=== PATIENT | female | born 1970 | race Caucasian/White ===

== ENCOUNTER → 2017-11-01 07:54 | Outpatient (CLI) | payer OTHER, SELFPAY ==
[2017-11-01 08:04] VITALS: BP 113/65; PULSE 85; RESP 18; TEMP 36.3; O2SAT 99; BMI 21.7
== END ==
PROVIDERS: Family Provider Family Medicine Geriatric Medicine; PCP Family Medicine Geriatric Medicine; Visit Provider Family Medicine Geriatric Medicine
DX: D50.9 Iron deficiency anemia, unspecified (principal)
CPT/HCPCS: 96365; J1756; J7050; A4216

== ENCOUNTER → 2017-11-03 07:55 | Outpatient (CLI) | payer OTHER, SELFPAY ==
[2017-11-03 08:04] VITALS: BP 110/72; PULSE 59; RESP 16; TEMP 36.8; O2SAT 100
== END ==
PROVIDERS: Family Provider Family Medicine Geriatric Medicine; PCP Family Medicine Geriatric Medicine; Visit Provider Family Medicine Geriatric Medicine
DX: D50.9 Iron deficiency anemia, unspecified (principal)
CPT/HCPCS: 96365; J1756; J7050; A4216

== ENCOUNTER → 2017-11-05 08:01 | Outpatient (CLI) | payer OTHER, SELFPAY ==
[2017-11-05 08:05] VITALS: BP 111/74; PULSE 73; RESP 16; TEMP 36.3; O2SAT 99
== END ==
PROVIDERS: Family Provider Family Medicine Geriatric Medicine; PCP Family Medicine Geriatric Medicine; Visit Provider Family Medicine Geriatric Medicine
DX: D50.9 Iron deficiency anemia, unspecified (principal)
CPT/HCPCS: 96365; J1756; J7050; A4216

== ENCOUNTER → 2017-11-08 08:00 | Outpatient (CLI) | payer OTHER, SELFPAY ==
[2017-11-08 08:20] VITALS: BP 112/67; PULSE 87; RESP 16; TEMP 36.9; O2SAT 97
== END ==
PROVIDERS: Family Provider Family Medicine Geriatric Medicine; PCP Family Medicine Geriatric Medicine; Visit Provider Family Medicine Geriatric Medicine
DX: D50.9 Iron deficiency anemia, unspecified (principal)
CPT/HCPCS: 96365; J1756; J7050; A4216

== ENCOUNTER → 2017-11-10 07:43 | Outpatient (CLI) | payer OTHER, SELFPAY ==
[2017-11-10 08:09] VITALS: BP 116/59; PULSE 79; RESP 16; TEMP 37; O2SAT 99
== END ==
PROVIDERS: Family Provider Family Medicine Geriatric Medicine; PCP Family Medicine Geriatric Medicine; Visit Provider Family Medicine Geriatric Medicine
DX: D50.9 Iron deficiency anemia, unspecified (principal)
CPT/HCPCS: 96365; J1756; J7050; A4216

== ENCOUNTER → 2017-11-17 07:39 | Outpatient (CLI) | payer OTHER, SELFPAY ==
[2017-11-17 08:30] LABS: Absolute Lymphocyte Count 1.34 X10^3/ul (0.83-4.51); Absolute Neutrophil Count 4.3 X10^3/uL (2.0-7.7); Basophil# 0.03 X10^3/uL; Basophil% 0.5 % (0-1); Eosinophils% 3.1 % (0-5); Hematocrit 40.6 % (37-47); Hemoglobin 12.3 g/dl (12.0-15.0); Lymphocyte # 1.34 X10^3/ul (4.0); Lymphocyte % 20.7 % (19-41); Mean Corp Hgb Conc 30.3 g/gl (32-36); Mean Corpuscular Hgb 26.5 pg (27.0-32.0); Mean Corpuscular Volume 87.5 fL (81-99); Mean Platelet Vol. 10.3 fl (6.2-12.0); Monocyte# 0.63 X10^3/uL; Monocyte% 9.7 % (0-10); Neutrophil # 4.25 X10^3/uL (2.7-7.7); Neutrophil % 65.7 % (47-70); POSITIVE COUNT NO; POSITIVE DIFFERENTIAL NO; POSITIVE MORPHOLOGY NO; Platelet Count 310 K/mm3 (150-450); RBC Distribution Width CV 18.7 % (11.6-14.6); RBC Distribution Width SD 59.3 fl (35.1-43.9); Red Blood Count 4.64 M/mm3 (4.2-5.4); White Blood Count 6.5 K/mm3 (4.4-11.0)
[2017-11-17 09:01] LABS: AST(SGOT) 29 U/L (15-37); Alanine Aminotransfer ALT/SGPT 30 U/L (13-56); Albumin, Serum 3.4 g/dL (3.2-5.0); Alkaline Phosphatase 67 U/L (45-117); Anion Gap 8 (5-15); BUN 16 mg/dL (7-18); BUN/Creat Ratio 18.9 RATIO (10-20); Calcium,Total 8.6 mg/dL (8.5-10.1); Chloride 108 mmol/L (98-107); Creatinine, Serum 0.85 mg/dL (0.55-1.02); EST Glomerular Filtration Rate 77 mL/min (>60); Est Glom Filt Rate - Afr Amer 93 mL/min (>60); Globulin 3.5 g/dL (2.2-4.2); Glucose 82 mg/dL (74-106); Iron 114 ug/dL (50-170); Iron Binding Capacity,Total 331 ug/dL (250-450); Potassium 4.1 mmol/L (3.5-5.1); Protein, Total 6.9 g/dL (6.4-8.2); Sodium Level 142 mmol/L (136-145); Thyroid Stim Hormone (TSH) 0.67 uIU/mL (0.358-3.74)
== END ==
PROVIDERS: Family Provider Family Medicine Geriatric Medicine; PCP Family Medicine Geriatric Medicine; Visit Provider Family Medicine Geriatric Medicine
DX: D50.9 Iron deficiency anemia, unspecified (principal)
CPT/HCPCS: 36415; 80053; 83540; 83550; 84443; 85025

== ENCOUNTER → 2018-03-25 09:29 | Outpatient (CLI) | payer OTHER, SELFPAY ==
[2018-03-25 12:51] LABS: AST(SGOT) 40 U/L (15-37); Alanine Aminotransfer ALT/SGPT 46 U/L (13-56); Albumin, Serum 3.4 g/dL (3.2-5.0); Alkaline Phosphatase 68 U/L (45-117); Anion Gap 9 (5-15); BUN 16 mg/dL (7-18); BUN/Creat Ratio 27.6 RATIO (10-20); Calcium,Total 8.3 mg/dL (8.5-10.1); Chloride 104 mmol/L (98-107); Creatinine, Serum 0.58 mg/dL (0.55-1.02); EST Glomerular Filtration Rate 119 mL/min (>60); Est Glom Filt Rate - Afr Amer 144 mL/min (>60); Globulin 3.4 g/dL (2.2-4.2); Glucose 87 mg/dL (74-106); Iron 79 ug/dL (50-170); Iron Binding Capacity,Total 352 ug/dL (250-450); PERCENT IRON SATURATION 22.4 % (15.0-55.0); Potassium 3.9 mmol/L (3.5-5.1); Protein, Total 6.8 g/dL (6.4-8.2); Sodium Level 140 mmol/L (136-145); Thyroid Stim Hormone (TSH) 0.84 uIU/mL (0.358-3.74)
[2018-03-25 12:52] LABS: Vitamin D,25 Hydroxy 31.4 ng/mL (29.95-100.01)
== END ==
PROVIDERS: Family Provider Family Medicine Geriatric Medicine; PCP Family Medicine Geriatric Medicine; Visit Provider Family Medicine Geriatric Medicine
DX: E55.9 Vitamin D deficiency, unspecified (principal); R53.83 Other fatigue; D64.9 Anemia, unspecified
CPT/HCPCS: 36415; 80053; 82306; 83540; 83550; 84443

== ENCOUNTER → 2018-05-10 13:13 | Outpatient (CLI) | payer OTHER, SELFPAY ==
--- NOTE | 2018-05-10 13:45 | MRI_ITS ---
STUDY: MRI CERVICAL SPINE WITHOUT CONTRAST REASON FOR EXAM: Female, 48 years old. Right-sided neck pain and radiculopathy with shoulder and arm pain TECHNIQUE: Standardized fat and water weighted pulse sequences were obtained in the sagittal and axial planes. COMPARISON: None FINDINGS: Normal foramen magnum and brainstem-cervical cord junction. Normal craniovertebral junction. Normal anterior atlantoaxial articulation. Normal odontoid process. Normal cervical lordosis. Normal vertebral bodies and posterior osseous elements. C2-3: Normal endplates. Normal disc height, signal and morphology. Normal central canal and intervertebral neural foramina. C3-4: Disc osteophyte complex without compressive sequelae. C4-5: Normal endplates. Normal disc height, signal and morphology. Normal central canal and intervertebral neural foramina. C5-6: Disc osteophyte complex without compressive sequelae. C6-7: Disc osteophyte complex without compressive sequelae. C7-T1: Normal endplates. Normal disc height, signal and morphology. Normal central canal and intervertebral neural foramina. Normal cervical cord. Normal visualized soft tissue structures. MRI/Spine Cervical (Routine) IMPRESSION: Mild multilevel disc disease without evidence of nerve root impingement or cord pathology. Electronically Signed: Jose Rocha MD at 1:56 EDT Tel , Service support ,
== END ==
PROVIDERS: Family Provider Family Medicine Geriatric Medicine; PCP Family Medicine Geriatric Medicine; Referring Provider Family Medicine Geriatric Medicine; Visit Provider Family Medicine Geriatric Medicine
DX: M50.80 Other cervical disc disorders, unspecified cervical region (principal); M50.20 Other cervical disc displacement, unspecified cervical region
CPT/HCPCS: 72141

== ENCOUNTER → 2018-07-01 11:32 | Outpatient (CLI) | payer OTHER, SELFPAY ==
[2018-05-04 08:08] VITALS: BMI 21.7
[2018-07-01 12:42] LABS: Ferritin 55 ng/mL (8-252); Iron 85 ug/dL (50-170); Iron Binding Capacity,Total 340 ug/dL (250-450)
[2018-07-04 20:11] LABS: Folate, Hemolysate Test 488.7 ng/mL (Not Estab.); Folate, RBC (Hct) Test 42.1 % (34.0-46.6)
[2018-07-05 09:44] LABS: Folates, RBC Test 1161 ng/mL (>498)
== END ==
PROVIDERS: Family Provider Family Medicine Geriatric Medicine; PCP Family Medicine Geriatric Medicine; Visit Provider Family Medicine Geriatric Medicine
DX: D64.9 Anemia, unspecified (principal)
CPT/HCPCS: 36415; 82728; 82747; 83540; 83550; 85014

== ENCOUNTER 2018-07-12 17:15 | Outpatient (RCR) | payer OTHER, SELFPAY ==
--- NOTE | 2018-01-06 18:51 | MASS.EVAL ---
Massage Therapy Evaluation: Initial Evaluation Date: 01/06/2018 SUBJECTIVE: Elaina is a 47 year old female who was referred to the [facility] facility for a massotherapy evaluation by Dr. Valles with the diagnosis of cervical degenerative disc disease. Elaina presents today with the symptoms of neck and upper back pain and tension. She also has muscle tension in her low back and hips. Elaina reports having a medical history of lumbar spine surgery and chronic neck pain with radiating pain in her neck and arms. She reports having minimal limitations during her daily activities and is also receiving chiropractic treatment currently. OBJECTIVE: Upon observation Elaina has poor posture with her head forward and shoulders forward from the neutral position in sitting and standing. After examination and palpation I found Elaina to have very high muscle tension with tenderness and myofascial restrictions in her sub occipitals, levator scapulae, trapezius, rhomboids, scalenes, and thoracic paraspinals. Her hips and lumbar muscles were also tight. The first treatment consisted of a one hour massage to her upper body with myofascial release, muscle stripping, trigger point compression techniques, and cervical manual traction. ASSESSMENT: I feel that Elaina is a good candidate for massotherapy at this time. She had a favorable response to the first treatment with reduction in her muscle aches, pain and tension. She also had improvement in her cervical flexibility. PLAN: The plan of care was reviewed with the patient. The patient is to be seen on as needed basis for a total of ten sessions with the recommendation of once every four weeks for a one hour treatment.
--- NOTE | 2018-07-13 12:34 | MASS.DISCH ---
Massage Therapy Discharge Summary: Discharge Date: 07/13/2018 Elaina was seen for a massotherapy evaluation on 01/06/2018 with the diagnosis of cervical DDD. She was treated with three sessions of massage therapy consisting of deep pressure soft tissue techniques, myofascial release and trigger point compression to her cervical, thoracic, lower back, upper extremities and hips. Elaina responded well to the therapy by reporting decreased tension and pain throughout her neck, shoulders, lower back and hips. Her goals for therapy were met throughout the treatment sessions. At this time this patient is being discharged from our care at [facility] facility.
== END 2018-07-12 19:00 | disposition home or self-care (01) ==
LOC: MASS 17:15
PROVIDERS: Family Provider Family Medicine Geriatric Medicine; PCP Family Medicine Geriatric Medicine; Visit Provider Pain Medicine Interventional Pain Medicine
DX: M50.30 Other cervical disc degeneration, unspecified cervical region (principal)
CPT/HCPCS: 97124

== ENCOUNTER → 2018-07-14 14:16 | Outpatient (CLI) | payer OTHER, SELFPAY ==
[2018-07-14 09:20] VITALS: BMI 27.4
== END ==
PROVIDERS: Family Provider Family Medicine Geriatric Medicine; PCP Family Medicine Geriatric Medicine; Referring Provider Physician Assistant; Visit Provider Physician Assistant
DX: J02.9 Acute pharyngitis, unspecified (principal)
CPT/HCPCS: 87081

== ENCOUNTER 2018-07-17 15:56 | Emergency (ER) | payer OTHER, SELFPAY ==
[2018-07-14 09:20] VITALS: BMI 27.4
[2018-07-17 15:57] VITALS: BP 107/57; PULSE 83; RESP 18; TEMP 36.4; O2SAT 98; BMI 25.8
--- NOTE | 2018-07-17 16:30 | RAD_ITS ---
STUDY: X-RAY - RIGHT ANKLE REASON FOR EXAM: Female, 48 years old. Ankle pain TECHNIQUE: 3 view(s) of the ankle. COMPARISON: None. FINDINGS: Oblique fracture through the distal fibula/lateral malleolus. There is no definite evidence of ankle mortise widening. Significant lateral soft tissue swelling. Posterior change of the base of the first metatarsal. RAD/Ankle min 3 Views IMPRESSION: Oblique fracture through the distal fibula/lateral malleolus. Ankle mortise appears intact. Electronically Signed: Rhett Lay DO at 17:03 EST Tel , Service support ,
--- NOTE | 2018-07-17 16:44 | ED.VISSUMM ---
- ER Visit Summary Date of Service: 07/17/18 Chief Complaint: Slipped and fell complaining of right lateral ankle pain and swelling. History of Present Illness: The patient is a 48 F history of prior gastric bypass surgery. Patient slipped on tile floor today injuring her right lateral ankle swelling and pain. No prior history of right ankle fracture or right ankle surgery. Denies any knee or hip pain. Did not hit her head no LOC. Physical Examination: Middle-aged female. No acute distress. Vital signs are stable. Afebrile. HEENT exam unremarkable atraumatic. Pupils round reactive light. No scalp trauma. C-spine and back nontender. Trachea midline. Lungs clear to auscultation bilaterally. Heart regular rhythm no murmur. Abdomen is soft and nontender. Chest wall nontender. Pelvic girdle intact. Both upper extremities are nontender with full range of motion equal and symmetrical 5 out of 5 child psychology teacher strength. Left lower extremity is unremarkable. Nontender left hip knee and ankle. Dorsi plantar flexion intact. Her right hip and knee are nontender with normal range of motion. The right lateral mild is tender and swollen. Dorsi plantar flexion intact. Pulse intact. Achilles tendon is intact. She is a small bruise on the distal right lower rowley. There is no bony deformity there. She is able to wiggle her toes. She has normal touch sensation. Neurologic exam normal. Test Results: Three-view right ankle x-ray shows a mildly displaced right distal fibula fracture. Emergency Department Course and Treatment: Short leg posterior splint by ER. Nonweightbearing. Limited [place] for pain 14 no refill. Ice and elevate. Follow-up with Dr. Adan Prescott on-call for orthopedics or orthopedic physician of their choice. Nonweightbearing. Treatment Plan: Nonweightbearing. Posterior splint. Crutches. Disposition: Discharge Impression: Slipped and fall. Acute right ankle distal fibula fracture Right posterior short leg splint by ER This note was generated with [employer] dictation software. It may contain incorrect words, spelling, and punctuation that were not noted in review of the chart prior to signing ED Disposition - Plan for ED Patient: Chief Complaint: Lower Extremity Injury Referrals: Albaro Dover Chi, MD [Primary Care Provider] -
--- NOTE | 2018-07-17 16:46 | ED.DEP ---
ED Disposition - Plan for ED Patient: Chief Complaint: Lower Extremity Injury Instructions: ED Fx Ankle Lateral Malleolus Prescriptions: Hydrocodone/Acetaminophen [[place] 10-325 Tablet] 1 ea PO Q4H PRN PRN #14 tab PRN Reason: Pain Referrals: Adan Prescott MD [STAFF PHYSICIAN] - As soon as possible Additional Instructions: Ice and elevate. [place] for pain. Keep splint dry and clean. Non-Weightbearing at this time. Call and follow-up with orthopedic doctor of your choice
--- NOTE | 2018-07-17 16:47 | ED.DCSUM_ITS ---
- ER Visit Summary Date of Service: 07/17/18 Chief Complaint: Slipped and fell complaining of right lateral ankle pain and swelling. History of Present Illness: The patient is a 48 F history of prior gastric bypass surgery. Patient slipped on tile floor today injuring her right lateral ankle swelling and pain. No prior history of right ankle fracture or right ankle surgery. Denies any knee or hip pain. Did not hit her head no LOC. Physical Examination: Middle-aged female. No acute distress. Vital signs are stable. Afebrile. HEENT exam unremarkable atraumatic. Pupils round reactive light. No scalp trauma. C-spine and back nontender. Trachea midline. Lungs clear to auscultation bilaterally. Heart regular rhythm no murmur. Abdomen is soft and nontender. Chest wall nontender. Pelvic girdle intact. Both upper extremities are nontender with full range of motion equal and symmetrical 5 out of 5 bench worker strength. Left lower extremity is unremarkable. Nontender left hip knee and ankle. Dorsi plantar flexion intact. Her right hip and knee are nontender with normal range of motion. The right lateral mild is tender and swollen. Dorsi plantar flexion intact. Pulse intact. Achilles tendon is intact. She is a small bruise on the distal right lower rowley. There is no bony deformity there. She is able to wiggle her toes. She has normal touch sensation. Neurologic exam normal. Test Results: Three-view right ankle x-ray shows a mildly displaced right distal fibula fracture. Emergency Department Course and Treatment: Short leg posterior splint by ER. Nonweightbearing. Limited [place] for pain 14 no refill. Ice and elevate. Follow-up with Dr. Adan Prescott on-call for orthopedics or orthopedic physician of their choice. Nonweightbearing. Treatment Plan: Nonweightbearing. Posterior splint. Crutches. Disposition: Discharge Impression: Slipped and fall. Acute right ankle distal fibula fracture Right posterior short leg splint by ER This note was generated with [employer] dictation software. It may contain incorrect words, spelling, and punctuation that were not noted in review of the chart prior to signing ED Disposition - Plan for ED Patient: Chief Complaint: Lower Extremity Injury Referrals: Albaro Dover Chi, MD [Primary Care Provider] -
--- NOTE | 2018-07-17 16:51 | DCINST.ED_ITS ---
ED Disposition - Plan for ED Patient: Chief Complaint: Lower Extremity Injury Instructions: ED Fx Ankle Lateral Malleolus Prescriptions: Hydrocodone/Acetaminophen [[place] 10-325 Tablet] 1 ea PO Q4H PRN PRN #14 tab PRN Reason: Pain Referrals: Adan Prescott MD [STAFF PHYSICIAN] - As soon as possible Additional Instructions: Ice and elevate. [place] for pain. Keep splint dry and clean. Non-Weightbearing at this time. Call and follow-up with orthopedic doctor of your choice
[2018-07-17 17:10] VITALS: BP 105/68; PULSE 74; RESP 16
== END 2018-07-17 17:13 | disposition home or self-care (01) ==
LOC: ED 16:40
PROVIDERS: Emergency Provider Emergency Medicine; Family Provider Family Medicine Geriatric Medicine; PCP Family Medicine Geriatric Medicine
DX: S82.431A Displaced oblique fracture of shaft of right fibula, initial encounter for closed fracture (principal); S82.61XA Displaced fracture of lateral malleolus of right fibula, initial encounter for closed fracture; W01.0XXA Fall on same level from slipping, tripping and stumbling without subsequent striking against object, initial encounter; Y93.9 Activity, unspecified; Y92.9 Unspecified place or not applicable; Y99.9 Unspecified external cause status; G25.81 Restless legs syndrome; F32.9 Major depressive disorder, single episode, unspecified; Z79.899 Other long term (current) drug therapy; Z98.84 Bariatric surgery status
CPT/HCPCS: 29515; 73610; 99283

== ENCOUNTER 2018-07-28 05:39 | Day surgery (SDC) | payer OTHER, SELFPAY ==
[2018-07-28] VITALS (7 sets, daily range): BP systolic 120–134; BP diastolic 69–87; PULSE 69–90; RESP 16–18; TEMP 36.7–37.4; O2SAT 94–100; BMI 26.3
[2018-07-28 06:11] LABS: Internal QC Validated? YES +Cl - CLEAR BKGD; Pregnancy, Urine Negative Negative
--- NOTE | 2018-07-28 07:15 | RAD_ITS ---
STUDY: X-RAY - RIGHT ANKLE REASON FOR EXAM: Female, 48 years old. Trauma TECHNIQUE: 7 view(s) of the ankle. COMPARISON: None. FINDINGS: 7 fluoroscopic images of the ankle demonstrate internal fixation of distal fibula. The hardware is intact. The fractures are in good alignment and close approximation. RAD/Ankle min 3 Views IMPRESSION: Internal fixation of fractures of distal fibula. Electronically Signed: Vega Espitia MD at 3:47 EST , Service support ,
[2018-07-28] MEDS: Cefazolin 2 GM in 0.9% Normal Saline 100 ML IV (07:18)
--- NOTE | 2018-07-28 09:51 | RAD_ITS ---
STUDY: X-RAY - RIGHT ANKLE REASON FOR EXAM: Female, 48 years old. Postop internal fixation right ankle. TECHNIQUE: 3 view(s) of the ankle. COMPARISON: July 28, 2018 and July 17, 2018 FINDINGS: There is now a metallic plate along the lateral aspect of the distal fibula with multiple transfixing screws. The distal fibular fracture is in normal alignment. Visualized distal tibia. Normal tibiotalar articulation and ankle mortise. Normal visualized talus and calcaneus. The visualized subtalar, talonavicular, calcaneocuboid and tarsal articulations are normal. Again seen is a stable screw in the base of the first metatarsal. There is mild lateral soft tissue swelling. There is a semiradiopaque splint along the dorsal margin of the lower leg and plantar aspect of the foot. RAD/Ankle min 3 Views IMPRESSION: Status post internal fixation of a distal fibular fracture. Electronically Signed: Andrea Irwin DO at 16:56 EST Tel [phone], Service support ,
--- NOTE | 2018-07-28 09:58 | OP.PN_ITS ---
Immediate Post-Op Note Date of Procedure: 07/28/18 Primary Surgeon/Physician: Erlinda Griffin DPM lehr stripper: Annabel Red Pre-Operative Diagnosis: R distal fibula fracture and syndesmotic disruption Post-Operative Diagnosis: same Surgery/Procedure Performed:: R ORIF distal fibula with transsyndesmotic fixation Description of Surgical Findings:: see dictation Estimated Blood Loss: minimal Specimen's removed: none Type of Anesthesia:: General/Regional - Admit VTE Documentation VTE Present on Admission: No VTE Mechan Device Prophylaxis: SCD's, Knee High LOIS Hose VTE Pharm Prophylaxis ordered?: Yes
--- NOTE | 2018-07-28 09:58 | PCM.DC.ORTHO ---
Discharge Activity: May Not Drive, May not drive while taking narcotic pain medications., May Not Shower, Use Walker, Use Crutches Weight Bearing Status: No weight bearing Keep extremity elevated above heart level: Operative Extremity Call your doctor if your incision/area has: Sudden Increased Bleeding Call your doctor if you observe: Fever of 101 or Higher, Shortness of breath, Chest pain, Increased palpitations (irregular heartbeat), Calf discomfort, Uncontrolled pain Cleanse incision/area with: Keep Dressing Clean & Dry Allergies/Adverse Reactions: Allergies NSAIDS (Non-Steroidal Anti-Inflamma Adverse Reaction (Verified 07/25/18 15:02) Other HIGH RISK FOR ULCERS POST BARIATRIC SURGERY Medications to take at Discharge Paroxetine HCl [Paxil] 20 mg PO DAILY 11/01/17 gabapentin 600 mg tablet 600 mg PO DAILY 07/14/18 Oxycodone [Oxyir] 5 mg PO Q6H PRN PRN 07/25/18 Enoxaparin Sodium [Lovenox] 40 mg SQ DAILY 28 Days #28 syringe 07/28/18 The following prescriptions were given: Enoxaparin Sodium [Lovenox] 40 mg SQ DAILY 28 Days #28 syringe Primary Care Physician: Albaro Dover Chi, MD [Primary Care Provider] - Test Results: Test results from this visit will be discussed in further detail at your follow-up appointment, if applicable. Please Follow Up With: Erlinda Griffin DPM - at your previously schedule post operative appointment Proposed Discharge Date: 07/28/18
--- NOTE | 2018-07-28 10:01 | DCINST_ITS ---
Discharge Activity: May Not Drive, May not drive while taking narcotic pain medications., May Not Shower, Use Walker, Use Crutches Weight Bearing Status: No weight bearing Keep extremity elevated above heart level: Operative Extremity Call your doctor if your incision/area has: Sudden Increased Bleeding Call your doctor if you observe: Fever of 101 or Higher, Shortness of breath, Chest pain, Increased palpitations (irregular heartbeat), Calf discomfort, Unco ntrolled pain Cleanse incision/area with: Keep Dressing Clean & Dry Allergies/Adverse Reactions: Allergies NSAIDS (Non-Steroidal Anti-Inflamma Adverse Reaction (Verified 07/25/18 15:02) Other HIGH RISK FOR ULCERS POST BARIATRIC SURGERY Medications to take at Discharge Paroxetine HCl [Paxil] 20 mg PO DAILY 11/01/17 gabapentin 600 mg tablet 600 mg PO DAILY 07/14/18 Oxycodone [Oxyir] 5 mg PO Q6H PRN PRN 07/25/18 Enoxaparin Sodium [Lovenox] 40 mg SQ DAILY 28 Days #28 syringe 07/28/18 The following prescriptions were given: Enoxaparin Sodium [Lovenox] 40 mg SQ DAILY 28 Days #28 syringe Primary Care Physician: Albaro Dover Chi, MD [Primary Care Provider] - Test Results: Test results from this visit will be discussed in further detail at your follow- up appointment, if applicable. Please Follow Up With: Erlinda Griffin DPM - at your previously schedule post operative appointment Proposed Discharge Date: 07/28/18
--- NOTE | 2018-07-29 09:51 | OP.PCM_ITS ---
Report of Operation Date of Procedure: 07/28/18 Pre-Operative Diagnosis: R distal fibula fracture and syndesmotic disruption Post-Operative Diagnosis: same Surgery/Procedure Performed:: R ORIF distal fibula with transsyndesmotic fixation Description of Surgical Findings:: see dictation display maker: Annabel Red Type of Anesthesia:: General/Regional Specimen's removed: none Estimated Blood Loss (mL): minimal Description of Procedure: Indications: Pt is a 48 yo F who sustained a right ankle fracture after a fall. She was evaluated in the ER and followed up in my clinic. Radiographs revealed a distal fibula fracture with displacement and syndesmotic instability/increased medial clear space. Patient would like surgical intervention today. All risks, complications, and alternatives were discussed with the patient, and the patient signed an informed consent. No guarantees were given. Procedure: On July 28,Elaina Solares was visually and verbally identified in the preoperative holding area. The consent form was again reviewed with the patient, as were all risks, complications, and alternatives and the patient wished to proceed with the proposed surgery. The right ankle was marked as the correct operative extremity. A right lower extremity block was performed by anesthesia in pre-op.The patient was brought to the operating room and placed on the operating room table in a lazy lateral position. After induction by anesthesia, a surgical time out was performed and all present were in agreement. a pneumatic thigh tourniquet was then placed. At this time the right lower extremity was prepped and draped in the usual sterile fashion. after exsanguination with an esmarch the tourniquet was inflated to 300 mmHg. At this time attention was directed to the right lateral ankle. Using a #15 blade a curvilinear incision was made over the fracture site.The incision was bluntly carried deep through the subcutaneous tissues with careful attention paid to all bleeders, which were clamped and tied or bovied as necessary. All vital neurovascular structures were retracted. The peroneal tendons were retracted. The fracture line was identified with direct visualization. Using a #15 blade and curettes soft tissue and hematoma were debrided from the fracture. The fracture was distracted and reduced. A temporary k wire was placed along with bone reduction clamps to hold the reduction. The bone was noted to be soft. The fracture was well reduced and this was confirmed on intraoperative fluoroscopy and with direct visualization. At this time a [place] 2.7 lag screw was placed perpendicular to the fracture line per AO technique. Good fixation was noted and the reduction held when the temporary k wire and bone reduction clamps were removed. A [place] variax plate was then placed with a combination of 3.5 locking and nonlocking screws. Plate positioning and screw length were confirmed with intraoperative fluoroscopy. At this time stress views were obtained with external rotation and the cotton hook test via intraoperative fluoroscopy. Increased syndesmotic gapping and an increased medial clear space were noted. A malleolar reduction clamp was then placed. A transsyndesmotic screw was then placed within the plate, parallel to the tibiotalar joint and proximal to the the fracture line of the distal fibula. The malleolar reduction clamp was removed and stress views were then repeated. The syndesmosis and medial clear space were within normal limits. The incision was then flushed with copious amounts of normal sterile saline and closure was initiated. 2.0 vicryl was used for deep layers, 3.0 vicryl for subcutaneous tissue and 3.0 prolene for skin. Adaptic and dry, sterile dressings were placed over the incision. A multilayer compressive dressing and well padded posterior splint were then applied. Total tourniquet time was 107 minutes with immediate capillary refill noted to all digits upon deflation. Intra operative fluoroscopy was utilized throughout the case, > 1 hour, to aid in visualization and confirmation of fracture reduction and screw and plate fixations. Interpretation of the images was vital to my decision making process. The patient tolerated the procedure and anesthesia well. The patient was then transported to the postanesthesia care unit by a member of the anesthesia team and myself with all vital signs stable and neurovascular status of the right lower extremity equal to pre-operative levels. At the end of the case all sponge, needle and instrument counts were found to be correct. Grafts/Implants Used: [place] Variax plate and screws - Complications none - Admit VTE Documentation VTE Present on Admission: No VTE Mechan Device Prophylaxis: SCD's, Knee High LOIS Hose VTE Pharm Prophylaxis ordered?: Yes
== END 2018-07-28 11:36 | disposition home or self-care (01) ==
LOC: SDC 05:40 → AC 05:41
PROVIDERS: Anesthesiology; Family Provider Family Medicine Geriatric Medicine; PCP Family Medicine Geriatric Medicine; Referring Provider Podiatrist Foot & Ankle Surgery; Visit Provider Podiatrist Foot & Ankle Surgery
DX: S82.61XA Displaced fracture of lateral malleolus of right fibula, initial encounter for closed fracture (principal); S93.431A Sprain of tibiofibular ligament of right ankle, initial encounter; S93.421A Sprain of deltoid ligament of right ankle, initial encounter; W01.0XXA Fall on same level from slipping, tripping and stumbling without subsequent striking against object, initial encounter; Y93.9 Activity, unspecified; Y92.9 Unspecified place or not applicable; Y99.9 Unspecified external cause status; I89.8 Other specified noninfective disorders of lymphatic vessels and lymph nodes; F32.9 Major depressive disorder, single episode, unspecified; E66.3 Overweight; Z68.25 Body mass index [BMI] 25.0-25.9, adult; Z79.899 Other long term (current) drug therapy; Z86.718 Personal history of other venous thrombosis and embolism; Z86.72 Personal history of thrombophlebitis; Z98.84 Bariatric surgery status
CPT/HCPCS: 27792; 64445; 73610; 76000; 81025; C1713; J7120; J2405

== ENCOUNTER → 2018-08-25 09:34 | Outpatient (CLI) | payer OTHER, SELFPAY ==
[2018-07-28 06:13] VITALS: BMI 26.3
[2018-08-25 12:57] LABS: Vitamin D,25 Hydroxy 19.7 ng/mL (29.95-100.01)
== END ==
PROVIDERS: Family Provider Family Medicine Geriatric Medicine; PCP Family Medicine Geriatric Medicine; Visit Provider Family Medicine Geriatric Medicine
DX: E55.9 Vitamin D deficiency, unspecified (principal)
CPT/HCPCS: 36415; 82306

== ENCOUNTER 2018-10-13 16:30 | Outpatient (RCR) | payer OTHER, SELFPAY ==
[2018-07-28 06:13] VITALS: BMI 26.3
--- NOTE | 2018-09-05 16:32 | HP.PTEVAL ---
Patient's Visit Information MINDI GERBER is a 48 year old F referred to Physical Therapy by Erlinda Griffin DPM with a diagnosis of Right Ankle Fracture SUrgery 07/28/18. Date of Evaluation: 09/05/18 Physical Therapist: Teresa Calle DPT - Visit Plan Frequency: 3x /Week Duration: 3 Weeks Plan: Focus on LE strength and functional mobility- call into MD about shoe in clinic - Subjective Findings: Patient reports that she fell on flat floor Jul 17, 2018. Had surgery - waiting for swelling to go down and holidays. She was in a splint until 2 weeks ago- Walking boot and is now able to fully weight bearing as of today. Fully I prior to surgery- was going to start running again right before she fell- she just wants to be able to do a 5K and get back to running. 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 Best: 0/10 Worst: 1/10 Does not really have a lot of pain is more uncomfortable due to her other joints. Dr. Wharton pain management did an injection today in her neck. Right elbow pain and neck from being on crutches. Is back to work currently. Does not have driving privledges as of now but plans to call the MD. Is not taking any pain meds for her ankle. Is able to take the boot off for bed- but wears it all the other times. Goes back to the MD in a month. Sleep: not disturbed. Had x-rays taken today. PMHx: no changes since surgery- Meds: no changes since surgery- no meds - Objective Posture: FH, RS- does correct with verbal cues but does not maintain. Gait: Cam walker on the right LE- poor heel/toe pattern and decreased stance. Palpation: tender along medial malleolus. Observation: incision healing well no ss of infection. ROM: DF: neutral, PF; 30 degrees, Inv: 30 degrees, Ever: 15 degrees- no fluid motion. Strength: Ankle: 4/5 in available range. Flex: HS: moderate, Gastroc: moderate, Solues: moderate. Edema: none. NO WB Tested without boot today until PT speaks to MD - Goals Goal 1:: Patient will be I with HEP and progression Goal Time Frame: 4-6 Weeks Goal 2:: Patient will ambulate >300 feet with a normalized gait pattern Goal Time Frame: 4-6 Weeks Goal 3:: Patient will SLS 30 sec on right LE Goal Time Frame: 4-6 Weeks Goal 4:: Patient will improve ROM by 10 degrees in all directions Goal Time Frame: 4-6 Weeks - Rehabilitation Potential Physical Therapy Diagnosis: Patient presents s/p ankle surgery 07/28/18 secondary to fracture- pt has decreased ROM, strength and muscular endurance leading to abnormal gait and decreased ability to perform ADL's. - Anticipated Interventions Patient/Client Instruction: Educate patient on: Benefits of Fitness Program Therapeutic Exercise to Include: Strength training, Endurance training, Balance training, Agility training, Body mechanics, Postural training, Flexibilty training, Gait and locomotor training, Dynamic Lumbar Stabilization For the Purpose of:: To improve muscle performance and motor function TENS: Yes Cryotherapy (ice pack, ice massage): Yes Thermo therapy (hot pack): Yes Ultrasound (thermal/non thermal): No For the Purpose of:: To decrease pain, To decrease swelling/inflammation Thank you for the opportunity to evaluate your patient. For Medicare and Medicare HMO plans, please review the plan of care and approve it. It will need to be FAXED BACK to us at [phone] for Medicare purposes. For Medicare only, by signing this I certify the plan of care. Please let me know if there are questions or concerns regarding this plan of care. Physician Signature: Date:
--- NOTE | 2018-09-27 16:49 | HP.PTEVAL_ITS ---
Patient's Visit Information MINDI GERBER is a 48 year old F referred to Physical Therapy by Erlinda Griffin DPM with a diagnosis of Right Ankle Fracture Surgery 07/28/18. Date of Evaluation: 09/05/18 Physical Therapist: Teresa Calle DPT - Visit Plan Frequency: 3x /Week Duration: 3 Weeks Plan: Continue 2-3x a week for 4 weeks - Subjective Findings: Patient reports that she fell on flat floor Jul 17, 2018. Had surgery - waiting for swelling to go down and holidays. She was in a splint until 2 weeks ago- Walking boot and is now able to fully weight bearing as of today. Fully I prior to surgery- was going to start running again right before she fell- she just wants to be able to do a 5K and get back to running. 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 Best: 0/10 Worst: 1/10 Does not really have a lot of pain is more uncomfortable due to her other joints. Dr. Wharton pain management did an injection today in her neck. Right elbow pain and neck from being on crutches. Is back to work currently. Does not have driving privledges as of now but plans to call the MD. Is not taking any pain meds for her ankle. Is able to take the boot off for bed- but wears it all the other times. Goes back to the MD in a month. Sleep: not disturbed. Had x-rays taken today. PMHx: no changes since surgery- Meds: no changes since surgery- no meds - Objective Posture: FH, RS- does correct with verbal cues but does not maintain. Gait: Cam walker on the right LE- poor heel/toe pattern and decreased stance. Palpation: tender along medial malleolus. Observation: incision healing well no ss of infection. ROM: DF: neutral, PF; 30 degrees, Inv: 30 degrees, Ever: 15 degrees- no fluid motion. Strength: Ankle: 4/5 in available range. Flex: HS: moderate, Gastroc: moderate, Solues: moderate. Edema: none. NO WB Tested without boot today until PT speaks to MD - Goals Goal 1:: Patient will be I with HEP and progression Goal Time Frame: 4-6 Weeks Goal 2:: Patient will ambulate >300 feet with a normalized gait pattern Goal Time Frame: 4-6 Weeks Goal 3:: Patient will SLS 30 sec on right LE Goal Time Frame: 4-6 Weeks Goal 4:: Patient will improve ROM by 10 degrees in all directions Goal Time Frame: 4-6 Weeks - Rehabilitation Potential Physical Therapy Diagnosis: Patient presents s/p ankle surgery 07/28/18 secondary to fracture- pt has decreased ROM, strength and muscular endurance leading to abnormal gait and decreased ability to perform ADL's. - Anticipated Interventions Patient/Client Instruction: Educate patient on: Benefits of Fitness Program Therapeutic Exercise to Include: Strength training, Endurance training, Balance training, Agility training, Body mechanics, Postural training, Flexibilty training, Gait and locomotor training, Dynamic Lumbar Stabilization For the Purpose of:: To improve muscle performance and motor function TENS: Yes Cryotherapy (ice pack, ice massage): Yes Thermo therapy (hot pack): Yes Ultrasound (thermal/non thermal): No For the Purpose of:: To decrease pain, To decrease swelling/inflammation Thank you for the opportunity to evaluate your patient. For Medicare and Medicare HMO plans, please review the plan of care and approve it. It will need to be FAXED BACK to us at [phone] for Medicare purposes. For Medicare only, by signing this I certify the plan of care. Please let me know if there are questions or concerns regarding this plan of care. Physician Signature: Date:
--- NOTE | 2018-11-25 08:22 | HP.PT.NRP ---
HP - Discharge Summary (1) - Patient Information MINDI GERBER was seen in my office for initial evaluation on 09/05/18. The following Plan of Care was established for this patient: Initial Frequency: 3x /Week Initial Duration: 3 Weeks - Anticipated Interventions Patient/Client Instruction: Educate patient on: Benefits of Fitness Program Therapeutic Exercise to Include: Strength training, Endurance training, Balance training, Agility training, Body mechanics, Postural training, Flexibilty training, Gait and locomotor training, Dynamic Lumbar Stabilization For the Purpose of:: To improve muscle performance and motor function TENS: Yes Cryotherapy (ice pack, ice massage): Yes Thermo therapy (hot pack): Yes Ultrasound (thermal/non thermal): No For the Purpose of:: To decrease pain, To decrease swelling/inflammation This patient was last seen in our office . Pertinent comments regarding their Physical therapy will appear below: Patient has not attended physical therapy in over 30 days and is appropriate for discharge. Follow up with MD as appropriate. At this point I will be discontinuing this patient from physical therapy. I would be happy to see this patient again in the future if found appropriate by the physician. Thank you! ALE FlynnT
== END 2018-10-13 19:00 | disposition home or self-care (01) ==
LOC: PT 16:30
PROVIDERS: Family Provider Family Medicine Geriatric Medicine; PCP Family Medicine Geriatric Medicine; Referring Provider Podiatrist Foot & Ankle Surgery; Visit Provider Podiatrist Foot & Ankle Surgery
DX: S82.61XD Displaced fracture of lateral malleolus of right fibula, subsequent encounter for closed fracture with routine healing (principal); S93.431D Sprain of tibiofibular ligament of right ankle, subsequent encounter
CPT/HCPCS: 97110; 97161; 97164

== ENCOUNTER → 2018-11-01 09:55 | Outpatient (CLI) | payer OTHER, SELFPAY ==
[2018-07-28 06:13] VITALS: BMI 26.3
--- NOTE | 2018-11-01 10:00 | BD_ITS ---
STUDY: DUAL ENERGY X-RAY ABSORPTIOMETRY / DXA REASON FOR EXAM: Female, 48 years old. Prednisone use. Loss of height. TECHNIQUE: Bone Mineral Density (BMD) measurements of lumbar spine and bilateral hips were obtained. COMPARISON: None. FINDINGS: Lumbar Spine (L1-L4): g/cm2 (1.346) / T-score (1.2) / Z-score (1.4) Findings are suggestive of normal bone density with a low fracture risk. Left Femur Total: g/cm2 (1.100) / T-score (0.7) / Z-score (1.1) Left Femoral Neck: g/cm2 (1.150) / T-score (0.8) / Z-score (1.4) Right Femur Total: g/cm2 (1.098) / T-score (0.7) / Z-score (1.1) Right Femoral Neck: g/cm2 (1.070) / T-score (0.2) / Z-score (0.9) BD/Dexa Bone Density Study IMPRESSION: The patient is considered normal as outlined below according to World Dann Organization (WHO) criteria with a low fracture risk. Reference Information: The T-score is the number of standard deviations above or below the standard which is normal for young adults at their peak bone mineral density. The World Health Organization (WHO) interprets the T-scores as follows: Above -1 Normal bone density Between -1 and -2.5 Osteopenia Equal to / or below -2.5 Osteoporosis As a practical clinical guideline, osteopenia may be graded as follows: Mild -1 through -1.5 Moderate -1.6 through -2.0 Severe -2.1 through -2.4 The Z-score is the number of standard deviations above or below age-matched controls. A Z-score of less than -1.5 would be considered abnormal. References: 1. NIH Osteoporosis and Related Bone Diseases http://www.osteo.org 2. International Society for Clinical Densitometry http://www.iscd.org 3. National Osteoporosis Foundation http://www.nof.org Electronically Signed: Khang Burrell, at 14:49 EDT , Service support ,
== END ==
PROVIDERS: Family Provider Family Medicine Geriatric Medicine; PCP Family Medicine Geriatric Medicine; Referring Provider Family Medicine Geriatric Medicine; Visit Provider Family Medicine Geriatric Medicine
DX: Z78.0 Asymptomatic menopausal state (principal)
CPT/HCPCS: 77080

== ENCOUNTER 2019-03-23 12:52 | Outpatient (RCR) | payer OTHER, SELFPAY ==
[2018-11-08 14:05] VITALS: BMI 29.3
--- NOTE | 2019-03-23 15:23 | HP.PTEVAL_ITS ---
Patient's Visit Information MINDI GERBER is a 49 year old F referred to Physical Therapy by Albaro Dover MD with a diagnosis of L Achilles Tendinitis. Date of Evaluation: 03/23/19 Physical Therapist: Teresa Calle DPT - Visit Plan Frequency: 2x /Week Duration: 4 Weeks Plan: Dependent on follow-up appointment with specialist on 03/24/19. Focus on progressing WB'ing as tolerated, improving ankle stability, and decreasing pain - Subjective Findings: Pt. just began running and training on a TM for 5k, and began experiencing L foot pain 03/04/19. Ran 3 miles experienced L achilles pain and tried to push through ther pain. Lives in a two story home and has discomfort and pain increase ascending/descending stairs (descending>ascending). Pain desrcibed as achey, sharp pain, denies N/T. Pain at its worst: 3-5/10, aggravating factors: walking, running, WB'ing, stairs. Pain free with rest, elevation & ice. Works at [employer] mostly sitting (standing 25% of the day. Pt. has appointment with tomorrow - 03/24/19. Wears ASICS that are about 6 months old and does not wear orthotics - Objective Posture: FH, RS - was corrected, not maintained. Gait: antlagic gait, significant weight shift to R LE (min. UE support). Observation: increased pes planus and rearfoot varus Left>right. HR: WFL - pain increase- used UE A for balance. TR: 75% - pain increase - used UE A for balance. SLS: unable to perform d/t pain- does fully weight shift. Palpate:TTP to at achilles tendon. ROM: Ankle WFL with pain at end range DF. Strength: 5/5 throughout with pain. Sensation: WNL to gross B touch. Flex: Gastroc: moderate - Goals Goal 1:: Pt. will be I w/ HEP & progression Goal Time Frame: 4-6 Weeks Goal 2:: Pt. will amb. up to >300 ft. w/ normalized gait pattern. Goal Time Frame: 4-6 Weeks Goal 3:: pt. will ascend/descend stairs with pain level of 0/10. Goal Time Frame: 4-6 Weeks Goal 4:: Pt. will return to running w/ pain level of 0/10. Goal Time Frame: 4-6 Weeks - Rehabilitation Potential Physical Therapy Diagnosis: Pt. presents with antalgic gait, impaired muscle performance, and pain which leads to decreased function. Rehabilitation Potential: Good - Anticipated Interventions Patient/Client Instruction: Educate patient on: Condition For the Purpose of:: To decrease pain Therapeutic Exercise to Include: Strength training, Endurance training, Balance training, Coordination, Agility training, Body mechanics, Postural training, Flexibilty training, Gait and locomotor training, Active ROM, Dynamic Lumbar Stabilization For the Purpose of:: To improve muscle performance and motor function Cryotherapy (ice pack, ice massage): Yes Thermo therapy (hot pack): Yes Ultrasound (thermal/non thermal): Yes Thank you for the opportunity to evaluate your patient. For Medicare and Medicare HMO plans, please review the plan of care and approve it. It will need to be FAXED BACK to us at [phone] for Medicare purposes. For Medicare only, by signing this I certify the plan of care. Please let me know if there are questions or concerns regarding this plan of care. Physician Signature: Date:
--- NOTE | 2019-05-05 09:53 | HP.PT.NRP ---
HP - Discharge Summary (1) - Patient Information MINDI GERBER was seen in my office for initial evaluation on 03/23/19. The following Plan of Care was established for this patient: Initial Frequency: 2x /Week Initial Duration: 4 Weeks - Anticipated Interventions Patient/Client Instruction: Educate patient on: Condition For the Purpose of:: To decrease pain Therapeutic Exercise to Include: Strength training, Endurance training, Balance training, Coordination, Agility training, Body mechanics, Postural training, Flexibilty training, Gait and locomotor training, Active ROM, Dynamic Lumbar Stabilization For the Purpose of:: To improve muscle performance and motor function Cryotherapy (ice pack, ice massage): Yes Thermo therapy (hot pack): Yes Ultrasound (thermal/non thermal): Yes This patient was last seen in our office . Pertinent comments regarding their Physical therapy will appear below: Patient has not attended PT in 4 weeks and is appropriate for d/c- return to MD for further evaluation as needed. At this point I will be discontinuing this patient from physical therapy. I would be happy to see this patient again in the future if found appropriate by the physician. Thank you! ALE FlynnT
== END 2019-03-23 19:00 | disposition home or self-care (01) ==
LOC: PT 12:52
PROVIDERS: Family Provider Family Medicine Geriatric Medicine; PCP Family Medicine Geriatric Medicine; Referring Provider Family Medicine Geriatric Medicine; Visit Provider Family Medicine Geriatric Medicine
DX: M76.62 Achilles tendinitis, left leg (principal)
CPT/HCPCS: 97035; 97161

== ENCOUNTER → 2019-03-31 06:46 | Outpatient (CLI) | payer OTHER, SELFPAY ==
[2018-11-08 14:05] VITALS: BMI 29.3
[2019-03-31 12:27] LABS: Vitamin D,25 Hydroxy 22.2 ng/mL (29.95-100.01)
[2019-03-31 15:11] LABS: Thyroid Stim Hormone (TSH) 1.29 uIU/mL (0.358-3.74)
== END ==
PROVIDERS: Family Provider Family Medicine Geriatric Medicine; PCP Family Medicine Geriatric Medicine; Referring Provider Podiatrist; Visit Provider Podiatrist
DX: M84.375A Stress fracture, left foot, initial encounter for fracture (principal); X58.XXXA Exposure to other specified factors, initial encounter; Y93.9 Activity, unspecified; Y92.9 Unspecified place or not applicable; Y99.9 Unspecified external cause status; E55.9 Vitamin D deficiency, unspecified; R53.83 Other fatigue
CPT/HCPCS: 36415; 82306; 84443

== ENCOUNTER → 2019-07-20 13:24 | Outpatient (CLI) | payer OTHER, SELFPAY ==
[2018-11-08 14:05] VITALS: BMI 29.3
--- NOTE | 2019-07-20 13:26 | CT_ITS ---
STUDY: CT LOWER EXTREMITY WITHOUT CONTRAST RIGHT REASON FOR EXAM: Female, 49 years old. PAIN IN RIGHT ANKLE AND IN JOINTS OF RIGHT FOOT. PRIOR SX TO REPAIR ANKLE FX RADIATION DOSAGE (If Supplied By Facility): CTDIvol = ( 15.35 ) mGy, DLP = ( 389.52 ) mGycm. Individualized dose optimization techniques were used for this CT.? TECHNIQUE: Proximal images of the right lower extremity were obtained from the distal tibia and fibula to the midfoot. Sagittal coronal reformatted images are performed. COMPARISON: Right ankle x-ray July 28, 2018 FINDINGS: Seen on prior study there is a side plate cortical screws transfixing the distal fibula. There is a single cortical screw fusing the fibula and the tibia. There is a cortical screw which is extending into the distal fibula which has shown some bony erosion around the tip within the tibia. There is a partially visualized cortical screw within the proximal first metatarsal. There is no visualized focal fluid collection. There is minimal edema. There is no visualized acute fracture. Ankle mortise is intact. There is a trace focus of calcific density at the distal aspect of the medial malleolus which may represent an old injury. CT/Extremity Lower without Contra IMPRESSION: Status post open reduction internal fixation of the distal fibula and tibial cortical screw. There are areas of bony resorption without visualized fracture. Electronically Signed: Carmen Castillo MD at 10:48 EST Tel , Service support ,
== END ==
PROVIDERS: Family Provider Family Medicine Geriatric Medicine; PCP Family Medicine Geriatric Medicine; Referring Provider Podiatrist Foot & Ankle Surgery; Visit Provider Podiatrist Foot & Ankle Surgery
DX: M25.571 Pain in right ankle and joints of right foot (principal)
CPT/HCPCS: 73700

== ENCOUNTER → 2019-08-07 16:56 | Outpatient (CLI) | payer OTHER, SELFPAY ==
[2018-11-08 14:05] VITALS: BMI 29.3
--- NOTE | 2019-08-07 16:59 | MRI_ITS ---
STUDY: MRI CERVICAL SPINE WITHOUT CONTRAST REASON FOR EXAM: Female, 49 years old. CERVICAL DISC PROLAPSE WITH RADICULOPATHY -- chronic pain neck and rt shoulder , upper arm for 10 years, no prev cervical surgery TECHNIQUE: Standardized fat and water weighted pulse sequences were obtained in the sagittal and axial planes. COMPARISON: None FINDINGS: Normal foramen magnum and brainstem-cervical cord junction. Normal craniovertebral junction. There are degenerative changes of the anterior atlantoaxial articulation. Normal odontoid process. Normal cervical lordosis. Normal vertebral bodies and posterior osseous elements. C2-3: Normal endplates. Normal disc height, signal and morphology. Normal central canal and intervertebral neural foramina. C3-4: Normal endplates. Normal disc height, signal and morphology. Normal central canal and intervertebral neural foramina. C4-5: Normal endplates. Normal disc height, signal and morphology. Normal central canal and intervertebral neural foramina. C5-6: Endplate spondylosis. Central and paracentral disc herniation more prominent on the right side. Degenerative changes of the bilateral facet joints and uncovertebral joints. Mild narrowing of the central canal. Normal bilateral intervertebral neural foramina. C6-7: Endplate spondylosis. Central and left paracentral disc herniation. Degenerative changes of the bilateral facet joints and uncovertebral joints. Mild narrowing of the central canal. Normal bilateral intervertebral neural foramina. C7-T1: Normal endplates. Normal disc height, signal and morphology. Normal central canal and intervertebral neural foramina. Normal cervical cord. Normal visualized soft tissue structures. MRI/Spine Cervical (Routine) IMPRESSION: Multilevel degenerative changes, as described above. Small disc herniations at C5-6 and C6-7. Electronically Signed: Leela Baer, at 7:44 EST Tel , Service support ,
== END ==
PROVIDERS: Family Provider Family Medicine Geriatric Medicine; PCP Family Medicine Geriatric Medicine; Referring Provider Family Medicine Geriatric Medicine; Visit Provider Family Medicine Geriatric Medicine
DX: M50.80 Other cervical disc disorders, unspecified cervical region (principal); M50.10 Cervical disc disorder with radiculopathy, unspecified cervical region
CPT/HCPCS: 72141

== ENCOUNTER → 2019-09-19 08:20 | Outpatient (CLI) | payer OTHER, SELFPAY ==
[2019-09-19 08:14] VITALS: BMI 29.3
--- NOTE | 2019-09-19 08:21 | RAD_ITS ---
STUDY: X-RAY - CERVICAL SPINE REASON FOR EXAM: Female, 49 years old. chronic neck pain, radiating tingling down right arm TECHNIQUE: 5 view(s) of the cervical spine were obtained. COMPARISON: MRI 08/07/2019 FINDINGS: Normal anterior atlantoaxial articulation. Normal odontoid process. Normal cervical lordosis. No subluxation on the flexion or extension views to suggest instability. Normal vertebral bodies and endplates. Normal disc space heights. Normal visualized intervertebral neuroforamina. The soft tissue structures are unremarkable. RAD/Cerv Spine 4 or 5 Views IMPRESSION: Normal x-ray examination of the visualized cervical spine. No instability. Electronically Signed: Keith Laguerre MD at 12:50 EST Tel , Service support ,
== END ==
PROVIDERS: PCP Family Medicine Geriatric Medicine; Referring Provider Orthopaedic Surgery; Visit Provider Orthopaedic Surgery
DX: M54.2 Cervicalgia (principal)
CPT/HCPCS: 72050

== ENCOUNTER → 2019-09-27 08:21 | Outpatient (CLI) | payer OTHER, SELFPAY ==
[2019-09-27 07:58] VITALS: BMI 29.3
--- NOTE | 2019-09-27 08:24 | RAD_ITS ---
STUDY: X-RAY - RIGHT SHOULDER REASON FOR EXAM: Female, 49 years old. Pain, decreased range of motion TECHNIQUE: 5 view(s) of the shoulder. COMPARISON: None. FINDINGS: Normal glenohumeral articulation. Normal acromioclavicular joint. Normal acromion. Normal humeral head and visualized proximal humerus. The soft tissue structures are unremarkable. Normal visualized pulmonary apex. RAD/Shoulder min 2 Views IMPRESSION: Normal x-ray examination of the shoulder. Electronically Signed: Nilesh Lopez MD at 16:55 EST , Service support ,
== END ==
PROVIDERS: PCP Family Medicine Geriatric Medicine; Referring Provider Orthopaedic Surgery; Visit Provider Orthopaedic Surgery
DX: M25.511 Pain in right shoulder (principal)
CPT/HCPCS: 73030

== ENCOUNTER → 2019-11-06 12:18 | Outpatient (CLI) | payer OTHER, SELFPAY ==
[2019-10-03 14:15] VITALS: BMI 29.3
--- NOTE | 2019-11-06 12:21 | RAD_ITS ---
STUDY: CT CERVICAL SPINE WITH INTRATHECAL CONTRAST (CERVICAL CT MYELOGRAM) REASON FOR EXAM: Female, 49 years old. BURNING PAIN FROM NECK,DOWN RIGHT ARM. HX OF BULGING DISCS RADIATION DOSAGE (If Supplied By Facility): CTDIvol = ( ) mGy, DLP = ( ) mGycm TECHNIQUE: Transaxial images were obtained following intrathecal administration of ml of contrast material, performed by . Please refer to this physicians technical notes for procedural details. Coronal and sagittal reconstructions were obtained. Individualized dose optimization techniques were used for this CT. CONSENT: SEDATION: FLUOROSCOPY TIME (if supplied): ( ) minutes/seconds Injection Information: Number of images obtained: COMPARISON: None. FINDINGS: Normal craniovertebral junction. Normal anterior atlantoaxial articulation. Normal odontoid process. Normal cervical lordosis. Normal vertebral bodies and posterior osseous elements. C2-3: Normal endplates. Normal disc height and morphology. Normal central canal and bilateral intervertebral neural foramen. C3-4: Normal endplates. Normal disc height and morphology. Normal central canal and bilateral intervertebral neural foramen. C4-5: Normal endplates. Normal disc height and morphology. Normal central canal and bilateral intervertebral neural foramen. C5-6: Normal endplates. Normal disc height and morphology. Normal central canal and bilateral intervertebral neural foramen. C6-7: Normal endplates. Normal disc height and morphology. Normal central canal and bilateral intervertebral neural foramen. C7-T1: Normal endplates. Normal disc height and morphology. Normal bilateral uncovertebral and apophyseal joints. Normal central canal and bilateral intervertebral neural foramen. Normal cervical cord size and morphology. No demonstrated soft tissue abnormality. RAD/Cervical Myelogram IMPRESSION: Normal CT myelogram of the cervical spine. Pending Final Proof Editing
[2019-11-06 12:27] VITALS: BP 127/90; PULSE 69; RESP 16; TEMP 36.9; O2SAT 96; BMI 29.0
--- NOTE | 2019-11-06 13:03 | CT_ITS ---
STUDY: CT cervical SPINE WITH INTRATHECAL CONTRAST (cervical CT MYELOGRAM) REASON FOR EXAM: Female, 49 years old. CERVICAL RADICULOPATHY, MYELOGRAM 20 CC CONTRAST INJECTED RADIATION DOSAGE (If Supplied By Facility): CTDIvol = ( 22.42 ) mGy, DLP = ( 499.85 ) mGycm TECHNIQUE: Transaxial images were obtained from the C1 vertebra through the T1 vertebrae, following intrathecal administration of 20 cc ml of Isovue M300 contrast material, performed by Dr. Ashanti lopez. Please refer to this physicians technical notes for procedural details. Coronal and sagittal reconstructions were obtained. Individualized dose optimization techniques were used for this CT. COMPARISON: None. FINDINGS: There is straightening of the normal cervical lordosis. There is no substantial scoliosis. Normal vertebrae of the cervical spine spine. C1-C2: Normal endplates. Normal disc height and morphology. Normal bilateral facet joints. Normal central canal and bilateral lateral recesses. Normal bilateral intervertebral neural foramina. C2-C3: Normal endplates. Normal disc height and morphology. Normal bilateral facet joints. Normal central canal and bilateral lateral recesses. Normal bilateral intervertebral neural foramina. C3-C4: Normal endplates. Normal disc height and morphology. Normal bilateral facet joints. Normal central canal and bilateral lateral recesses. Normal bilateral intervertebral neural foramina. C4-C5: Normal endplates. Normal disc height and morphology. Normal bilateral facet joints. Normal central canal and bilateral lateral recesses. Normal bilateral intervertebral neural foramina. C6-C7: Normal endplates. Normal disc height and morphology. Normal bilateral facet joints. Normal central canal and bilateral lateral recesses. Normal bilateral intervertebral neural foramina. Normal visualized paraspinous soft tissue structures. CT/Spine Cervical WITH Contrast IMPRESSION: Normal CT myelogram of the cervical spine. Electronically Signed: Khang Burrell, at 14:37 EDT , Service support ,
[2019-11-06 13:06] VITALS: BP 126/74; PULSE 65; RESP 18; O2SAT 98
[2019-11-06 13:16] VITALS: BP 135/81; PULSE 63; RESP 18; O2SAT 96
== END ==
PROVIDERS: PCP Family Medicine Geriatric Medicine; Referring Provider Orthopaedic Surgery; Visit Provider Orthopaedic Surgery
DX: M54.12 Radiculopathy, cervical region (principal)
CPT/HCPCS: 62302; 72126

== ENCOUNTER 2019-12-25 09:24 | Day surgery (SDC) | payer OTHER, SELFPAY ==
[2019-11-06 12:27] VITALS: BMI 29.0
[2019-12-25 09:44] VITALS: BP 119/80; PULSE 62; RESP 16; TEMP 36.5; O2SAT 97; BMI 28.8
[2019-12-25 09:47] LABS: Internal QC Validated? YES +Cl - CLEAR BKGD; Pregnancy, Urine Negative Negative
[2019-12-25] MEDS: Lactated Ringers 1,000 ML 100 ML IV (09:49)
[2019-12-25] MEDS: MethylPREDNISolone Acetate 80 MG/ML Vial (10:31)
[2019-12-25] MEDS: Bupivacaine 0.25% 30 ML Vial (10:31)
[2019-12-25 10:40] VITALS: BP 110/72; BP 119/80; PULSE 54; RESP 16; TEMP 36; O2SAT 100
--- NOTE | 2019-12-25 10:40 | RAD_ITS ---
PROCEDURE: Right C4-C7 cervical facet intra-articular injection. DATE OF EXAMINATION: December 25, 2019. INDICATION: Female, 49 years old. Chronic neck pain. FLUOROSCOPY TIME (if supplied): (18.5 seconds) minutes/seconds. 4 fluoroscopic images were obtained. Intraoperative imaging provided for right C4-C7 facet intra-articular injection. RAD/Cerv Spine 4 or 5 Views IMPRESSION: Intraoperative imaging provided for right C4-C7 facet intra-articular injection. Electronically Signed: Khang Burrell, at 12:42 EDT , Service support ,
[2019-12-25 10:45] VITALS: BP 118/72; BP 119/80; PULSE 55; RESP 18; O2SAT 99
[2019-12-25 10:50] VITALS: BP 119/80; BP 121/76; PULSE 52; RESP 18; O2SAT 95
[2019-12-25 10:55] VITALS: BP 119/80; BP 128/78; PULSE 54; RESP 18; TEMP 36.1; O2SAT 100
[2019-12-25 11:14] VITALS: BP 119/80
--- NOTE | 2019-12-25 14:46 | OP.PCM_ITS ---
Report of Operation Date of Procedure: 12/25/19 Description of Surgical Findings:: PREOPERATIVE DIAGNOSIS: Cervical spondylosis, cervical degenerative disc disease, cervical facet arthropathy POSTOPERATIVE DIAGNOSIS: Cervical spondylosis, cervical degenerative disc disease, cervical facet arthropathy PROCEDURE PERFORMED: Right-sided cervical facet steroid injection, C4, C5, C6 and C7. ANESTHESIA: MAC. BLOOD LOSS: Minimal. COMPLICATIONS: None. DESCRIPTION OF PROCEDURE: History and physical of today was reviewed. Risks and benefits of the procedure were explained. The patient understood and agreed to proceed. Informed consent was obtained. IV inserted per routine protocol. The patient was taken to the operating room and placed in the prone position with a pillow positioned underneath the chest. The neck area was prepped and draped in a sterile fashion using iodine x3. Under fluoroscopy guidance on an AP view, the C4 through C7 vertebral bodies were visualized at approximately 10- degree angle, starting on the right C 4, ending on the right C7, passing through the C5 and C6. Using a 25-gauge 3-1/2-inch spinal needle, the needle was advanced via the skin. The tip of the needle was maneuvered and directed towards the epiphyseal junction of each corresponding vertebra. Once the tip of the needle was at the vicinity of the medial branch, the needle was pulled approximately 2 mm off the bone. After negative aspiration of blood or CSF and confirmation on AP, oblique as well as lateral view, a total of 4 mL of preservative-free 0.25% Marcaine with 80 mg of Depo-Medrol was injected in divided doses between those four levels. The needles were then removed intact. The patient experienced no sign or symptoms of intrathecal or intravascular in jection. The patient experienced no paresthesia. The procedure was completed without any apparent difficulty or any complications. The patient appeared to tolerate it well. ASSESSMENT AND PLAN: This is a 49-year-old female with cervical spondylosis, cervical degenerative disc disease, cervical facet arthropathy status post right-sided cervical facet steroid injection C4-C7, patient will continue current medications, patient will follow approximately 2 weeks for reevaluation.
== END 2019-12-25 11:16 | disposition home or self-care (01) ==
LOC: SDC 09:24 → AC 09:26
PROVIDERS: Anesthesiology; PCP Family Medicine Geriatric Medicine; Referring Provider Anesthesiology Pain Medicine; Visit Provider Anesthesiology Pain Medicine
PROC: 3E0U3BZ Introduction of Anesthetic Agent into Joints, Percutaneous Approach (ICD-10-PCS; CPT 64490; principal; 2019-12-25 10:35)
DX: M47.22 Other spondylosis with radiculopathy, cervical region (principal); M50.10 Cervical disc disorder with radiculopathy, unspecified cervical region; M48.02 Spinal stenosis, cervical region; G89.29 Other chronic pain; E78.5 Hyperlipidemia, unspecified; K21.9 Gastro-esophageal reflux disease without esophagitis; G47.33 Obstructive sleep apnea (adult) (pediatric); F32.9 Major depressive disorder, single episode, unspecified; Z79.899 Other long term (current) drug therapy; Z98.84 Bariatric surgery status; Z86.2 Personal history of diseases of the blood and blood-forming organs and certain disorders involving the immune mechanism; Z86.718 Personal history of other venous thrombosis and embolism
CPT/HCPCS: 64491; 64492; 64490; 72050; 81025; J7120

== ENCOUNTER → 2020-02-12 16:59 | Outpatient (CLI) | payer OTHER, SELFPAY ==
--- NOTE | 2020-02-12 17:02 | RAD_ITS ---
STUDY: X-RAY - LUMBAR SPINE REASON FOR EXAM: Female, 49 years old. LOWER BACK PAIN THAT GOES INTO RIGHT HIP. HX OF LOWER BACK SURGERY TECHNIQUE: 3 view(s) of the lumbar spine were obtained. COMPARISON: None FINDINGS: Normal lumbar lordosis. There is no substantial scoliosis. There is a normal alignment of the vertebrae. There is multilevel endplate spondylosis of the lumbar vertebrae. There is multi-level degenerative disc disease with multi-level disc space narrowing. There is no demonstrated fracture. Essure device placement noted RAD/Lumbar Spine 2 or 3 Views IMPRESSION: Mild degenerative changes, most pronounced at L4-5 and L5-S1, no demonstrated fracture or suspicious osseous lesion Electronically Signed: Nilesh Lopez MD at 9:14 EDT , Service support ,
--- NOTE | 2020-02-12 17:07 | RAD_ITS ---
STUDY: X-RAY - PELVIS AND RIGHT HIP REASON FOR EXAM: Female, 49 years old. LOWER BACK PAIN THAT GOES INTO RIGHT HIP. HX OF LOWER BACK SURGERY TECHNIQUE: 3 views of the pelvis and hip. COMPARISON: None. FINDINGS: There is a non-specific bowel gas pattern. Evidence of Essure device placement Normal bilateral iliac wings, sacroiliac joints and visualized sacrum. Normal bilateral superior and inferior pubic rami. Normal pubic symphysis. Normal bilateral ischial tuberosities. Normal visualized femoral head. Normal acetabulum. Normal hip joint. RAD/HIP, UNI W/ Pelvis 2-3 Views IMPRESSION: Normal x-ray examination of the pelvis and hip. Electronically Signed: Nilesh Lopez MD at 9:13 EDT , Service support ,
== END ==
PROVIDERS: PCP Family Medicine Geriatric Medicine; Referring Provider Family Medicine Geriatric Medicine; Visit Provider Family Medicine Geriatric Medicine
DX: M54.5 Low back pain (principal); M25.551 Pain in right hip
CPT/HCPCS: 72100; 73502

== ENCOUNTER → 2020-03-25 10:54 | Outpatient (CLI) | payer OTHER, SELFPAY ==
[2020-03-08 07:47] VITALS: BMI 28.8
--- NOTE | 2020-03-25 11:30 | MRI_ITS ---
STUDY: MRI RIGHT HIP REASON FOR EXAM: Right groin pain for 8 months, suspected internal derangement. TECHNIQUE: Standardized fat and water weighted pulse sequences were obtained in all 3 orthogonal planes. COMPARISON: Radiographs 02/22/2020. FINDINGS: Normal hip joint without articular joint space narrowing. Normal acetabulum. There is a suspected small tear of the right superior labrum at the base (inversion recovery coronal images 16, 17). Normal femoral head. There is a herniation pit in the anterior lateral right femoral neck (inversion recovery coronal image 17) measuring 0.9 cm in length. Normal gluteus minimus, medius and iliopsoas tendons and distal insertions. There is no trochanteric, iliopsoas or iliopectineal bursitis. Normal superior and inferior pubic rami. Normal pubic symphysis. Normal ischial tuberosity. Normal origin of the hamstring tendons. Normal visualized iliac wing, sacroiliac joint, and sacral ala. There are nabothian cysts (inversion recovery axial images 20, 21). MRI/Lower Ext Joint Only (Routine) IMPRESSION: Suspected small tear of the right superior labrum. Herniation pit in the right femoral neck. Electronically Signed: Ernie Jacobsen MD at 12:21 EDT Tel , Service support ,
== END ==
PROVIDERS: PCP Family Medicine Geriatric Medicine; Referring Provider Orthopaedic Surgery; Visit Provider Orthopaedic Surgery
DX: M25.551 Pain in right hip (principal)
CPT/HCPCS: 73721

== ENCOUNTER 2020-04-18 17:30 | Outpatient (RCR) | payer OTHER, SELFPAY ==
[2020-03-08 07:47] VITALS: BMI 28.8
--- NOTE | 2020-03-26 16:03 | HP.PTEVAL_ITS ---
Patient's Visit Information MINDI GERBER is a 50 year old F referred to Physical Therapy by Dr. Rm Gary DO with a diagnosis of R hip pain. Date of Evaluation: 03/26/20 Physical Therapist: Dylan Torres, PT, ATC - Visit Plan Frequency: 2-3x /Week Duration: 4-6 Weeks Plan: R hip strengthening, core stab ex's, balance and proprio, bike, and HEP - Subjective Pt began to notice R hip pain 9 months ago. Pt reports she is a runner, and notes that she has participated in multiple 5 .K's and notes she has to limp cross the line at times. Pt reports she had an MRI which revealed a tear of the R labrum. Pt reports she is to see the doctor tomorrow about the results. Occasional sleep difficulty secondary to pain. Pt notes she wants to be able to run again in the future. Pt notes stairs to the basement which doesnt bother her unless she is sore. No tingling or numbness in R LE at this time. 0/10 pain at rest, 7/10 pain with running. - Pain R hip pain Pain Intensity (Out of 10): 0 Pain Intensity Range: 6 - Objective Neuro: B LE sensation is WNL to light touch. B patellar reflex 2/3. Palpation: Mild pain on lateral hip. ROM: B hips are WFL. MMT: B LE's are grossly 4/5 throughout - Goals Goal 1:: Decrease R hip pain x 50% to aid with sleep Goal Time Frame: 4-6 Weeks Goal 2:: Increase R LE strength x 1 grade to aid with RTS Goal Time Frame: 4-6 Weeks Goal 3:: I with HEP Goal Time Frame: 4-6 Weeks - Rehabilitation Potential Physical Therapy Diagnosis: Pt has R hip pain, weakness, and limited ability to run secondary to suspected labral pathology Rehabilitation Potential: Good - Anticipated Interventions Patient/Client Instruction: Educate patient on: Condition, Plan of Care For the Purpose of:: To improve self management Therapeutic Exercise to Include: Strength training, Endurance training, Balance training, Flexibilty training, Gait and locomotor training, Active ROM, Dynamic Lumbar Stabilization For the Purpose of:: To decrease pain, To improve muscle performance and motor function Cryotherapy (ice pack, ice massage): Yes For the Purpose of:: To decrease pain Thank you for the opportunity to evaluate your patient. For Medicare and Medicare HMO plans, please review the plan of care and approve it. It will need to be FAXED BACK to us at [phone] for Medicare purposes. For Medicare only, by signing this I certify the plan of care. Please let me know if there are questions or concerns regarding this plan of care. Physician Signature: Date:
--- NOTE | 2020-06-03 15:00 | HP.PT.NRP ---
MINDI GERBER was seen in my office for initial evaluation on 03/26/20. The following Plan of Care was established for this patient: Initial Frequency: 2-3x /Week Initial Duration: 4-6 Weeks Patient/Client Instruction: Educate patient on: Condition, Plan of Care For the Purpose of:: To improve self management Therapeutic Exercise to Include: Strength training, Endurance training, Balance training, Flexibilty training, Gait and locomotor training, Active ROM, Dynamic Lumbar Stabilization For the Purpose of:: To decrease pain, To improve muscle performance and motor function Cryotherapy (ice pack, ice massage): Yes For the Purpose of:: To decrease pain This patient was last seen in our office . Pertinent comments regarding their Physical therapy will appear below: Pt was treated for R hip pain for 6 PT visits through the date of 04/18/20. Pt has not returned through todays date and is discontinued at this time. At this point I will be discontinuing this patient from physical therapy. I would be happy to see this patient again in the future if found appropriate by the physician. Thank you! Dylan Torres, PT, ATC
== END 2020-04-18 19:00 | disposition home or self-care (01) ==
LOC: PT 17:30
PROVIDERS: PCP Family Medicine Geriatric Medicine; Referring Provider Orthopaedic Surgery; Visit Provider Orthopaedic Surgery
DX: M25.551 Pain in right hip (principal)
CPT/HCPCS: 97110; 97161

== ENCOUNTER → 2020-06-11 09:56 | Outpatient (CLI) | payer OTHER, SELFPAY ==
[2020-05-16 09:20] VITALS: BMI 28.2
[2020-06-11 12:52] LABS: Anion Gap 5 (5-15); BUN 14 mg/dL (7-18); BUN/Creat Ratio 18.4 RATIO (10-20); Calcium,Total 8.9 mg/dL (8.5-10.1); Chloride 105 mmol/L (98-107); Creatinine, Serum 0.76 mg/dL (0.55-1.02); EST Glomerular Filtration Rate 86 mL/min (>60); Est Glom Filt Rate - Afr Amer 104 mL/min (>60); Glucose 73 mg/dL (74-106); Potassium 4.5 mmol/L (3.5-5.1); Sodium Level 138 mmol/L (136-145)
[2020-06-11 13:55] LABS: Absolute Lymphocyte Count 0.88 X10^3/uL (0.83-4.51); Absolute Neutrophil Count 9.6 X10^3/uL (2.0-7.7); Basophil# 0.01 X10^3/uL; Basophil% 0.1 % (0-1); Eosinophil# 0.01 X10^3/uL; Eosinophils% 0.1 % (0-5); Hematocrit 39.6 % (37-47); Hemoglobin 11.5 g/dL (12.0-15.0); Lymphocyte # 0.88 X10^3/ul (4.0); Mean Corpuscular Volume 89.6 fL (81-99); Mean Platelet Vol. 11.8 fl (6.2-12.0); Monocyte# 0.38 X10^3/uL; Monocyte% 3.5 % (0-10); NRBC Flagged by Analyzer 0 % (0-5); Neutrophil # 9.62 X10^3/uL (2.7-7.7); Neutrophil % 87.6 % (47-70); Platelet Count 303 K/mm3 (150-450); RBC Distribution Width SD 48.7 fl (35.1-43.9); Red Blood Count 4.42 M/mm3 (4.2-5.4)
== END ==
PROVIDERS: PCP Family Medicine Geriatric Medicine; Visit Provider Family Medicine Geriatric Medicine
DX: Z01.818 Encounter for other preprocedural examination (principal); Z01.810 Encounter for preprocedural cardiovascular examination; B95.62 Methicillin resistant Staphylococcus aureus infection as the cause of diseases classified elsewhere
CPT/HCPCS: 36415; 80048; 85025; 87081

== ENCOUNTER → 2020-06-17 13:59 | Outpatient (CLI) | payer OTHER, SELFPAY ==
[2020-05-16 09:20] VITALS: BMI 28.2
[2020-06-17 14:13] VITALS: BP 132/79; PULSE 77; RESP 18; TEMP 36.1; BMI 27.4
[2020-06-17] MEDS: 0.9% NaCl IVPB Med Flush (250 mL) 15 ML IV (14:24)
[2020-06-17] MEDS: 0.9% NaCl Peripheral Flush Adult/Peds IV (14:24)
[2020-06-17 15:02] VITALS: BP 117/76; PULSE 69; RESP 16; TEMP 36.2
== END ==
PROVIDERS: PCP Family Medicine Geriatric Medicine; Referring Provider Family Medicine Geriatric Medicine; Visit Provider Family Medicine Geriatric Medicine
DX: D50.9 Iron deficiency anemia, unspecified (principal)
CPT/HCPCS: 96365; J1756; J7050; A4216

== ENCOUNTER → 2020-06-19 14:03 | Outpatient (CLI) | payer OTHER, SELFPAY ==
[2020-05-16 09:20] VITALS: BMI 28.2
[2020-06-17 14:13] VITALS: BMI 27.4
[2020-06-19] MEDS: 0.9% NaCl IVPB Med Flush (250 mL) 15 ML IV (14:20)
[2020-06-19] MEDS: 0.9% NaCl Peripheral Flush Adult/Peds IV (14:21)
[2020-06-19 14:22] VITALS: BP 115/72; PULSE 70; RESP 18; TEMP 35.8; O2SAT 98; BMI 27.4
[2020-06-19 15:02] VITALS: BP 132/74; PULSE 69; TEMP 36.7
== END ==
PROVIDERS: PCP Family Medicine Geriatric Medicine; Referring Provider Family Medicine Geriatric Medicine; Visit Provider Family Medicine Geriatric Medicine
DX: D50.9 Iron deficiency anemia, unspecified (principal)
CPT/HCPCS: 96365; J1756; J7050; A4216

== ENCOUNTER → 2020-06-21 09:32 | Outpatient (CLI) | payer OTHER, SELFPAY ==
[2020-05-16 09:20] VITALS: BMI 28.2
[2020-06-19 14:22] VITALS: BMI 27.4
[2020-06-21] MEDS: 0.9% NaCl Peripheral Flush Adult/Peds IV (09:43)
[2020-06-21] MEDS: 0.9% NaCl IVPB Med Flush (250 mL) 15 ML IV (09:44)
[2020-06-21 09:47] VITALS: BP 134/88; PULSE 80; RESP 16; TEMP 36; O2SAT 100
== END ==
PROVIDERS: PCP Family Medicine Geriatric Medicine; Referring Provider Family Medicine Geriatric Medicine; Visit Provider Family Medicine Geriatric Medicine
DX: D50.9 Iron deficiency anemia, unspecified (principal)
CPT/HCPCS: 96365; J1756; J7050; A4216

== ENCOUNTER → 2020-06-24 13:58 | Outpatient (CLI) | payer OTHER, SELFPAY ==
[2020-05-16 09:20] VITALS: BMI 28.2
[2020-06-19 14:22] VITALS: BMI 27.4
[2020-06-24 14:07] VITALS: BP 124/79; PULSE 81; RESP 12; TEMP 36.5; O2SAT 95; BMI 27.4
== END ==
PROVIDERS: PCP Family Medicine Geriatric Medicine; Referring Provider Family Medicine Geriatric Medicine; Visit Provider Family Medicine Geriatric Medicine
DX: D50.9 Iron deficiency anemia, unspecified (principal)
CPT/HCPCS: 96365; J1756; J7040; A4216

== ENCOUNTER → 2020-06-27 15:06 | Outpatient (CLI) | payer OTHER, SELFPAY ==
[2020-05-16 09:20] VITALS: BMI 28.2
[2020-06-24 14:07] VITALS: BMI 27.4
[2020-06-27 15:20] VITALS: BP 132/81; PULSE 76; RESP 16; TEMP 35.9; O2SAT 96
[2020-06-27] MEDS: 0.9% NaCl Peripheral Flush Adult/Peds IV (15:22)
[2020-06-27] MEDS: 0.9% NaCl IVPB Med Flush (250 mL) 15 ML IV (15:22)
[2020-06-27 16:03] VITALS: BP 123/65; PULSE 77
== END ==
PROVIDERS: PCP Family Medicine Geriatric Medicine; Referring Provider Family Medicine Geriatric Medicine; Visit Provider Family Medicine Geriatric Medicine
DX: D50.9 Iron deficiency anemia, unspecified (principal)
CPT/HCPCS: 96365; J1756; J7050; A4216

== ENCOUNTER 2020-09-04 08:30 | Outpatient (RCR) | payer OTHER, SELFPAY ==
[2020-06-24 14:07] VITALS: BMI 27.4
--- NOTE | 2020-07-17 12:06 | HP.PTEVAL_ITS ---
Patient's Visit Information MINDI GERBER is a 50 year old F referred to Physical Therapy by KELECHI GREEN with a diagnosis of OTHER ARTICULAR DISORDERS RIGHT HIP. Date of Evaluation: 07/17/20 Physical Therapist: Petr Casas PT, Cert MDT, OCS - Visit Plan Frequency: 2x /Week Duration: 8-10 WEEKS Plan: S/P LABRAL TEAR LINA S/P 07/04/20. SEE PROTOCAL ATHROSCOPIC LABRAL CAPSULAR REPAIR. INTIALLY NWB RLE 2WKS,PWB 3 WEEKS,WBAT 4 WEEKS WITH ONE CRUTCH ,THEN NO CRUTCHES TERVENTIONS GAIT TRAINING,BALANCE TRAINING ROM/STRENGTHENING PER PROTCOCA L - Subjective This 50 y/o female presents to physical therapy with LABRAL REPAIR LINA. Patient has had pain since 2019 noticed July. Patient started running treadmill . Pateint right heel had to stop. Started running in July right groin tried running in November ,training for 5k then in January became more pronounced . Patient seen DR Tong then had MRI showed labral tear at [facility]. Patient thus underwent s/p right hip scope with labral tear ,acetabuloplasty,chondroplasty,syovectomy,abrasion arhroplasty,femoroplasty and capsular. Jul 04 ,D/C home NWB with mason basilio PWB 07/18/20. Currently patient has min pain. Pateint has min pain. Patient denies parathesia/tingling. Patient has difficulty sleeping because other. Patient has h/o fracture 2 years ago. Patient surgery affects ability to walk,ADLS' and housework tasks . Patient surgery affects QOL. SOCIAL: . VOCATION: [employer] - Objective POSTURE:mild foward posture NWB RLE with crutches. GAIT: ambulated with crutches with NWB RLE. PALPATION : unremarkable. SKIN: well approxiamte. MMT: quads/hams 4-/5,hip flexion 3+/5,ankle 4/5. AROM: supine knee flexion 0-120 degrees ,supine abduction 25 degrees,hip flexion 95 degrees. NEURO: intact - Goals Goal 1:: I with HEP Goal Time Frame: 8-12 Weeks Goal 2:: Ambualte with normal rambo Goal Time Frame: 8-12 Weeks Goal 3:: Patient to improve balance to good and proprioception symmtrical right =left to improve function. Goal Time Frame: 8-12 Weeks Goal 4:: Patient to improve AROM hip flexion 110 degrees and abd 40 degrees and hip ER/IR WFL to improve function. Goal Time Frame: 8-12 Weeks Goal 5:: Patient increase hip flexion 4/ ,abd 4-/5 and quads/hams 5/5 to improve function. Goal Time Frame: 8-12 Weeks Goal 6:: Patient to improve LFES score by 10 points or> to improve function and QOL. Goal Time Frame: 8-12 Weeks - Rehabilitation Potential Physical Therapy Diagnosis: Patient under scope of right hip with LABRAL TEAR LINA with current deficits with gait with WB limitations intailly NWB 2 weeks then PWB RLE with NWB,balance,ROM,strength and function and RTW thus will benif aspen from skilled PT Rehabilitation Potential: Good - Anticipated Interventions Patient/Client Instruction: Educate patient on: Condition, Plan of Care For the Purpose of:: To decrease pain, To increase ROM, To improve muscle performance and motor function, To improve ability to perform ADL's, To increase tolerance to activity/condition/position, To improve performance and independence with ADL's, To improve ability of physical actions for home/community/work/leisure, To improve health of tissue, To decrease soft tissue restriction, To increase flexibility/ROM, To improve endurance, To improve balance, To improve safety with gait, To reduce risk of recurrence, To improve ability to perform tasks related to life management Therapeutic Exercise to Include: Strength training, Endurance training, Balance training, Body mechanics, Flexibilty training, Gait and locomotor training, Passive ROM, Active ROM Comment: hip/knee. SEE PROTOCAL FOR PROGRESSION For the Purpose of:: To decrease pain, To increase ROM, To improve muscle p erformance and motor function, To improve ability to perform ADL's, To increase tolerance to activity/condition/position, To improve ability of physical actions for home/community/work/leisure, To improve gait and locomotor functions, To improve health of tissue, To decrease soft tissue restriction, To increase flexibility/ROM, To improve endurance, To improve balance, To improve safety with gait, To improve ability to perform tasks related to life management Thank you for the opportunity to evaluate your patient. For Medicare and Medicare HMO plans, please review the plan of care and approve it. It will need to be FAXED BACK to us at [phone] for Medicare purposes. For Medicare only, by signing this I certify the plan of care. Please let me know if there are questions or concerns regarding this plan of care. Physician Signature: Date:
== END 2020-09-04 19:00 | disposition home or self-care (01) ==
LOC: PT 08:30
PROVIDERS: PCP Family Medicine Geriatric Medicine
DX: M24.151 Other articular cartilage disorders, right hip (principal)
CPT/HCPCS: 97110; 97162

== ENCOUNTER 2020-09-29 20:53 | Emergency (ER) | payer OTHER, SELFPAY ==
[2020-06-24 14:07] VITALS: BMI 27.4
[2020-09-29 20:54] VITALS: BP 149/93; PULSE 75; RESP 15; TEMP 35.9; O2SAT 98; BMI 27.2
[2020-09-29] MEDS: Metoclopramide 10 MG/2 ML Vial 5 MG IV (21:44)
[2020-09-29] MEDS: DiphenhydrAMINE 50 MG/ML Syringe 25 MG IV (21:44)
--- NOTE | 2020-09-29 22:12 | ED.VISSUMM ---
- ER Visit Summary Date of Service: 09/29/20 Chief Complaint: Headache History of Present Illness: The patient is a 50 F presenting with headache. Patient states this started approximately 3 days ago. Headache was gradual in onset. Feels similar to her previous migraine headaches. She denies recent trauma. She tried Imitrex and Tylenol at home. She denies fever. She has chronic neck pain which is no worse than usual. She has nausea without vomiting. Denies other complaints. Physical Examination: Vitals are stable. Patient is afebrile. Alert no acute distress. HEENT exam is unremarkable. Neck is supple. No meningismus Lungs are clear and equal bilaterally. Heart is regular rate and rhythm. Extremities are unremarkable. Skin is warm and dry. No focal neurologic deficit. Remainder of exam is unremarkable. Emergency Department Course and Treatment: She was given Reglan, Benadryl, Toradol IV. She is feeling improved on reevaluation. She is advised to follow up with her primary care physician. Advised return to the ED for worsening complaints. Disposition: Discharge home Impression: Headache This note was generated with [employer] dictation software. It may contain incorrect words, spelling, and punctuation that were not noted in review of the chart prior to signing ED Disposition - Plan for ED Patient: Instructions: ED Headache Unspecified Referrals: Albaro Dover Chi, MD [Primary Care Provider] -
--- NOTE | 2020-09-29 22:19 | ED.DEP ---
ED Disposition - Plan for ED Patient: Instructions: ED Headache Unspecified Referrals: Albaro Dover Chi, MD [Primary Care Provider] -
[2020-09-29] MEDS: Ketorolac 15 MG/ML Vial IV (22:35)
[2020-09-29 23:05] VITALS: BP 138/92; PULSE 66; RESP 14; O2SAT 97
== END 2020-09-29 23:11 | disposition home or self-care (01) ==
LOC: ED 21:40
PROVIDERS: Emergency Provider Emergency Medicine; PCP Family Medicine Geriatric Medicine
DX: R51.9 Headache, unspecified (principal); M54.2 Cervicalgia; G89.29 Other chronic pain; R11.0 Nausea; Z79.899 Other long term (current) drug therapy; Z98.84 Bariatric surgery status
CPT/HCPCS: 96374; 96375; 99285; A4216

== ENCOUNTER 2020-12-09 09:02 | Day surgery (SDC) | payer OTHER, SELFPAY ==
[2020-12-09] VITALS (7 sets, daily range): BP systolic 116–130; BP diastolic 67–76; PULSE 44–50; RESP 16–169; TEMP 36.2–36.7; O2SAT 97–100; BMI 24.5
[2020-12-09 09:26] LABS: Internal QC Validated? YES +Cl - CLEAR BKGD
[2020-12-09 09:28] LABS: Pregnancy, Urine Negative Negative
[2020-12-09] MEDS: Lactated Ringers 1,000 ML 100 ML IV (09:55)
--- NOTE | 2020-12-09 10:24 | RAD_ITS ---
STUDY: X-RAY - CERVICAL SPINE REASON FOR EXAM: Female, 50 years old. FACETS INJECTION, C4-C7,RIGHT TECHNIQUE: 4 intraoperative view(s) of the cervical spine were obtained. COMPARISON: None FINDINGS: 4 limited intraoperative views were performed as the patient has undergone right-sided facet injections from C4 to C7. No plain film evidence of abnormality. RAD/Cerv Spine 2 or 3 Views IMPRESSION: Limited intraoperative films performed during facet joint injection Electronically Signed: Nilesh Lopez MD at 13:37 EDT , Service support ,
[2020-12-09] MEDS: Bupivacaine 0.25% 30 ML Vial (10:27)
[2020-12-09] MEDS: MethylPREDNISolone Acetate 80 MG/ML Vial (10:27)
--- NOTE | 2020-12-09 11:31 | OP.PCM_ITS ---
Report of Operation Date of Procedure: 12/09/20 Pre-Operative Diagnosis: Cervical spondylosis, cervical degenerative disc disea se, cervical facet arthropathy Post-Operative Diagnosis: Cervical spondylosis, cervical degenerative disc disease, cervical facet arthropathy Surgery/Procedure Performed:: Right-sided cervical facet steroid injection C4, C5, C6, C7 Type of Anesthesia: MAC Estimated Blood Loss (mL): Minimal Description of Procedure: DESCRIPTION OF PROCEDURE: History and physical of today was reviewed. Risks and benefits of the procedure were explained. The patient understood and agreed to proceed. Informed consent was obtained. IV inserted per routine protocol. The patient was taken to the operating room and placed in the prone position with a pillow positioned underneath the chest. The neck area was prepped and draped in a sterile fashion using iodine x3. Under fluoroscopy guidance on an AP view, the C4 through C7 vertebral bodies were visualized at approximately 10-degree angle, starting on the right C4, ending on the right C7, passing through the C5 and C6. Using a 25-gauge 3-1/2-inch spinal needle, the needle was advanced via the skin. The tip of the needle was maneuvered and directed towards the epiphyseal junction of each corresponding vertebra. Once the tip of the needle was at the vicinity of the medial branch, the needle was pulled approximately 2 mm off the bone. After negative aspiration of blood or CSF and confirmation on AP, oblique as well as lateral view, a total of 4 mL of preservative-free 0.25% Marcaine with 80 mg of Depo- Medrol was injected in divided doses between those four levels. The needles were then removed intact. The patient experienced no sign or symptoms of intrathecal or intravascular injection. The patient experienced no paresthesia. The procedure was completed without any apparent difficulty or any complications. The patient appeared to tolerate it well. ASSESSMENT AND PLAN: This is a 50-year-old female with cervical spondylosis, cervical degenerative disc disease, cervical facet arthropathy status post right-sided cervical facet steroid injection C4-C7, patient will continue her current medications, patient will follow in approximately 2 weeks for reevaluation. Complications None
== END 2020-12-09 11:18 | disposition home or self-care (01) ==
LOC: SDC 09:03 → AC 09:03
PROVIDERS: Anesthesiology; PCP Family Medicine Geriatric Medicine; Referring Provider Anesthesiology Pain Medicine; Visit Provider Anesthesiology Pain Medicine
PROC: 3E0U3BZ Introduction of Anesthetic Agent into Joints, Percutaneous Approach (ICD-10-PCS; CPT 64490; principal; 2020-12-09 10:35)
DX: M50.00 Cervical disc disorder with myelopathy, unspecified cervical region (principal); M50.10 Cervical disc disorder with radiculopathy, unspecified cervical region; M50.20 Other cervical disc displacement, unspecified cervical region; M48.02 Spinal stenosis, cervical region; E78.5 Hyperlipidemia, unspecified; G47.30 Sleep apnea, unspecified; E55.9 Vitamin D deficiency, unspecified; K21.9 Gastro-esophageal reflux disease without esophagitis; Z79.899 Other long term (current) drug therapy; Z86.718 Personal history of other venous thrombosis and embolism; Z98.84 Bariatric surgery status; Z95.1 Presence of aortocoronary bypass graft
CPT/HCPCS: 01992; 64491; 64492; 64490; 72040; 81025; J7120

== ENCOUNTER 2021-01-20 07:00 | Outpatient (RCR) | payer OTHER, SELFPAY ==
[2020-12-09 09:30] VITALS: BMI 24.5
--- NOTE | 2020-12-25 07:51 | HP.PTEVAL ---
Patient's Visit Information MINDI GERBER is a 50 year old F referred to Physical Therapy by KELECHI GREEN with a diagnosis of Right Labral Tear- LINA. Date of Evaluation: 12/25/20 Physical Therapist: Teresa Calle DPT - Visit Plan Frequency: 2x /Week Duration: 4 Weeks Plan: Focus on LE and core strength/stabilization. HEP Given IE: single leg bridge, clams, prone hip extn, firehydrants, bird dog - Subjective June- labral repair on the right- started running again- the left started bothering her- when she went for her follow up the MD told her its normally bilateral. Pain is aggravated by pivoting to quick, running, standing to long in one spot, getting out of the car after driving for 45 min Worst: 7/10. Best: 0/10 Eases: after she gets moving the pain eases. She has had some feeling of instability. Pain is located in the groin and in the buttocks- pain does radiate to the knee with running. Describes as sharp in the hip and down the leg- duly and achy positional. Sleep: does wake her up from soreness- right side sleeper. Has not had an MRI on this hip yet. 6 weeks of therapy then return to MD for MRI and follow up. She just finished a 5K a day in November challenge- did walk some of them. She would like to increase mileage- wants to run a half in Mar. Plans to continue running while she does therapy. Left hip sometimes gets stiff but no pain with running. No N/T in the feet. Wears good shoes when she runs. PMHx/Meds: Paxil on a daily basis- all other PMHx in chart. - Objective Posture: FH, RS- can correct but does not maintain throughout session. Gait: slightly antalgic- decreased stance on the left LE with mild hip drop. SLS: 10 sec with moderate hip drop and sway. HR/TR: able and can HR/TR ambulate without incidence. Stairs: asc/desc 8 recip with 1 HR- poor control with descent. Sensation: WFL. ROM: Hip ER: diminished by 25% with reports of tightness and discomfort. Flex: HS: moderate, Quad: mild, Gastroc: moderate. Strength: Core: fair, Hip: 4/5 throughout Knee/Ankle: 5/5. Special Test: Scour: positive, AWILDA: positive, LLD: negative - Goals Goal 1:: Patient will be I with HEP and progression Goal Time Frame: 4-6 Weeks Goal 2:: Patient will ambulate >300 feet with a normalized gait pattern Goal Time Frame: 4-6 Weeks Goal 3:: Patient will asc/desc 8 stairs recip with 1 HR and good control Goal Time Frame: 4-6 Weeks Goal 4:: Patient will report no more than 2/10 pain with running Goal Time Frame: 4-6 Weeks Goal 5:: Patient will SLS for 30 sec without LOB - Rehabilitation Potential Physical Therapy Diagnosis: Patient presents with hypomobility- she has decreased painfree ROM, LE and core strength/stabilization, flex and muscular endurance leading to poor posture and increased pain with ADL's and recreational activities. Rehabilitation Potential: Fair - Anticipated Interventions Patient/Client Instruction: Educate patient on: Benefits of Fitness Program Therapeutic Exercise to Include: Strength training, Endurance training, Balance training, Coordination, Agility training, Body mechanics, Postural training, Flexibilty training, Gait and locomotor training, Neuromotor development, Dynamic Lumbar Stabilization, Scapular Strength/Stabilization For the Purpose of:: To improve muscle performance and motor function Thank you for the opportunity to evaluate your patient. For Medicare and Medicare HMO plans, please review the plan of care and approve it. It will need to be FAXED BACK to us at [phone] for Medicare purposes. For Medicare only, by signing this I certify the plan of care. Please let me know if there are questions or concerns regarding this plan of care. Physician Signature: Date:
--- NOTE | 2021-01-20 07:19 | HP.PTDCSUM ---
It has been my pleasure to treat MINDI GERBER referred by KELECHI GREEN, with the diagnosis of Right Labral Tear- LINA for a total of 7 visit(s). Discharge Date: Please see the following information for a summary of their discharge status. Subjective: Patient reports that she did not have a race this weekend the weekend before she tried to run a 5K and she didn't make it a mile before she was cursing her hip. She has not gotten on her TM or Bike since. It hurts almost all the time at this point. She goes next week to see the PA- she will have an MRI then back to the MD. Worst: -02/01- when she was running she was an /. Best: 08/04. She is having a hard time keeping up with her son shopping yesterday. If its torn she does plan to have surgery and do rehab at that point. Left hip Pain Intensity (Out of 10): 2 % Improvement: 0 Objective/Function: No significant changes since initial evaluation. Goal 1:: Patient will be I with HEP and progression Goal Progress: Progressing Goal 2:: Patient will ambulate >300 feet with a normalized gait pattern Goal Progress: Not Progressing Goal 3:: Patient will asc/desc 8 stairs recip with 1 HR and good control Goal Progress: Not Progressing Goal 4:: Patient will report no more than 2/10 pain with running Goal Progress: Not Progressing Goal 5:: Patient will SLS for 30 sec without LOB Goal Progress: Not Progressing Plan: 01/20/2021: Discharge- return to MD for further evaluation- educated on importance of moderation and latent soreness. Focus on LE and core strength/stabilization. HEP Given IE: single leg bridge, clams, prone hip extn, firehydrants, bird dog If there are questions or concerns regarding this patient's physical therapy, please feel free to call me at [phone]. Thank you for the referral of this patient. Sincerely, Teresa Calle DPT
== END 2021-01-20 19:00 | disposition home or self-care (01) ==
LOC: PT 07:00
PROVIDERS: PCP Family Medicine Geriatric Medicine
DX: M25.552 Pain in left hip (principal)
CPT/HCPCS: 97110; 97161; 97164

== ENCOUNTER → 2021-01-22 | Outpatient (CLI) | payer OTHER, SELFPAY ==
[2021-01-22 13:10] VITALS: BMI 24.2
[2021-01-29 16:12] LABS: HPV APTIMA, High Risk Negative (Negative)
== END | disposition home or self-care (01) ==
PROVIDERS: PCP Family Medicine Geriatric Medicine; Visit Provider Obstetrics & Gynecology
DX: Z12.4 Encounter for screening for malignant neoplasm of cervix (principal); N89.8 Other specified noninflammatory disorders of vagina
CPT/HCPCS: 87070; 87205; 87624; 88175; G0145

== ENCOUNTER → 2021-01-29 14:49 | Outpatient (CLI) | payer OTHER, SELFPAY ==
[2021-01-22 13:10] VITALS: BMI 24.2
--- NOTE | 2021-01-29 14:51 | BI_ITS ---
MAMMOGRAPHY - BILATERAL SCREENING REASON FOR EXAM: Female, 50 years old. Routine annual screening examination. PERTINENT HISTORY: Non-contributory. Remote right bilateral breast reduction surgery. TECHNIQUE: Digital bilateral breast jonna (3D mammographic acquisition) in the CC and MLO projections. 2-D mediolateral oblique (MLO) and craniocaudad (CC) views of both breasts were obtained. CAD: Full Field Digital Mammography with Computer Added Detection was performed. COMPARISON: Comparison is made with prior study 03/26/2016 and 08/19/2015. FINDINGS: Breast Composition: The breasts are heterogeneously dense, which may obscure small masses. There are no dominant masses or suspicious calcifications. Stable asymmetrical breast tissue in the right axillary region. No other significant abnormalities are identified. There has been no significant change since the prior study. BI/SCRN MAMM (CAD)W/JONNA BILAT IMPRESSION: Stable bilateral screening mammogram. Yearly follow-up mammogram recommended. (A) ASSESSMENT CATEGORY: BIRADS Category 2: Benign. A letter regarding these results will be sent to the patient by the facility within 30 days. Approximately 10% of breast cancers are not detected by mammography. A normal mammogram should not delay biopsy of a clinically suspicious abnormality. [id number] Electronically Signed: Khang Burrell MD at 15:56 EDT , Service support ,
== END ==
PROVIDERS: PCP Family Medicine Geriatric Medicine; Referring Provider Obstetrics & Gynecology; Visit Provider Obstetrics & Gynecology
DX: Z12.31 Encounter for screening mammogram for malignant neoplasm of breast (principal)
CPT/HCPCS: 77063; 77067

== ENCOUNTER → 2021-02-17 09:02 | Outpatient (CLI) | payer OTHER, SELFPAY ==
[2021-01-22 13:10] VITALS: BMI 24.2
--- NOTE | 2021-02-17 09:11 | RAD_ITS ---
CLINICAL HISTORY: Female, 51 years old. Left hip pain. PROCEDURE: ARTHROGRAM - LEFT HIP CONSENT: The procedure as well as the benefits and possible complications including infection and bleeding were explained to the patient. Informed consent was obtained. FLUOROSCOPY TIME (if supplied): (32 seconds) minutes/seconds Injection Information: 10 cc of dilute MRI contrast. Number of images obtained: 1 TECHNIQUE: (All elements of maximal sterile barrier technique followed, including US elements as applicable) The patient was in the supine position. The overlying skin was prepped and draped in the usual sterile fashion. Following local anesthetic application and under direct fluoroscopic guidance, a 22-gauge spinal needle was placed into the left hip joint. 2 cc of ISOVUE-300 was injected for confirmation. Following this, 10 cc of dilute DOTAREM was injected. The patient tolerated the procedure well. RAD/Arthrogram Hip w/ MRI IMPRESSION: Successful left hip arthrogram for MRI to follow. Electronically Signed: Khang Burrell MD at 10:35 EDT , Service support ,
[2021-02-17] MEDS: Iopamidol 10 ML in Syringe 1 EACH 600 ML IV (09:30)
[2021-02-17] MEDS: Lidocaine 2% (5ml sdv) 5 ML VIAL.MPF INFILT (09:30)
--- NOTE | 2021-02-17 10:07 | MRI_ITS ---
STUDY: MR LEFT HIP ARTHROGRAPHY REASON FOR EXAM: Left hip pain for 3-4 months, no specific injury. TECHNIQUE: Standardized fat and water weighted pulse sequences were obtained in all 3 orthogonal planes after intra-articular instillation of dilute Dotarem. COMPARISON: Fluoroscopic image from arthrogram preceding the MRI. FINDINGS: Normal hip joint without articular joint space narrowing. Normal acetabulum. There is a tear at the base of the left superior labrum (T1 coronal images 8-10). Normal femoral head. There is bone edema of the medial aspect of the base of the left femoral neck extending into the intertrochanteric femur/lesser tuberosity (T2 coronal images 6-10), a stress phenomenon. Normal gluteus minimus, medius and iliopsoas tendons and distal insertions. There is no trochanteric, iliopsoas or iliopectineal bursitis. Normal superior and inferior pubic rami. Normal pubic symphysis. Normal ischial tuberosity. Normal origin of the hamstring tendons. Normal visualized iliac wing. There are nabothian cysts (T2 coronal images 5-9). MRI/Lower Ext/Jt Only/W Contrast IMPRESSION: Left superior labral tear. Bone edema of the medial aspect of the base of the left femoral neck and intertrochanteric femur/lesser tuberosity, a stress phenomenon. Electronically Signed: Ernie Jacobsen MD at 12:18 EDT Tel , Service support ,
== END ==
PROVIDERS: PCP Family Medicine Geriatric Medicine
DX: M25.852 Other specified joint disorders, left hip (principal)
CPT/HCPCS: 27093; 73722; 77002; A9575; Q9967

== ENCOUNTER → 2021-02-21 11:51 | Outpatient (CLI) | payer OTHER, SELFPAY ==
[2021-01-22 13:10] VITALS: BMI 24.2
== END ==
PROVIDERS: PCP Family Medicine Geriatric Medicine; Referring Provider Orthopaedic Surgery Sports Medicine; Visit Provider Orthopaedic Surgery Sports Medicine
DX: M84.359A Stress fracture, hip, unspecified, initial encounter for fracture (principal); X58.XXXA Exposure to other specified factors, initial encounter; Y93.9 Activity, unspecified; Y92.9 Unspecified place or not applicable; Y99.9 Unspecified external cause status
CPT/HCPCS: 36415; 82306

== ENCOUNTER 2021-04-14 08:59 | Day surgery (SDC) | payer OTHER, SELFPAY ==
[2021-04-14] VITALS (7 sets, daily range): BP systolic 111–138; BP diastolic 72–96; PULSE 52–61; RESP 16; TEMP 36.1–36.4; O2SAT 100; BMI 23.6
--- NOTE | 2021-04-14 09:00 | RAD_ITS ---
PROCEDURE: Radiofrequency ablation. DATE OF EXAMINATION: 04/14/2021 INDICATION: Female, 51 years old. Chronic cervical pain. FLUOROSCOPY TIME (if supplied): (8 seconds) minutes/seconds. 7 images were obtained. RAD/Cerv Spine 4 or 5 Views IMPRESSION: Intraoperative imaging provided for right C4-C7 radiofrequency ablation. Electronically Signed: Khang Burrell MD at 15:51 EDT , Service support ,
[2021-04-14 09:30] LABS: Internal QC Validated? YES +Cl - CLEAR BKGD; Pregnancy, Urine Negative Negative
[2021-04-14] MEDS: Lactated Ringers 1,000 ML 100 ML IV (09:34)
[2021-04-14] MEDS: Bupivacaine 0.25% 30 ML Vial (09:57)
[2021-04-14] MEDS: MethylPREDNISolone Acetate 40 MG/ML Vial IM (09:57)
[2021-04-14] MEDS: Lidocaine 1% (30 ml sdv) 30 ML Vial (09:57)
--- NOTE | 2021-04-14 15:26 | OP.PCM_ITS ---
Report of Operation Date of Procedure: 04/14/21 Description of Surgical Findings:: PREOPERATIVE DIAGNOSIS: Cervical spondylosis, cervical degenerative disc disease, cervical facet arthropathy POSTOPERATIVE DIAGNOSIS: Cervical spondylosis, cervical degenerative disc disease, cervical facet arthropathy PROCEDURE PERFORMED: Right-sided radiofrequency ablation of the medial branch at C4, C5, C6, and C7. ANESTHESIA: MAC. BLOOD LOSS: Minimal. COMPLICATIONS: None. DESCRIPTION OF PROCEDURE: History and physical of today was reviewed. Risks and benefits of the procedure were explained. The patient understood and agreed to proceed. Informed consent was obtained. IV inserted per routine protocol. The patient was taken to the operating room and placed in the prone position with a pillow positioned underneath the chest. The neck area was prepped and draped in a sterile fashion using iodine x3. Under fluoroscopy guidance on an AP view, the C4 through C7 vertebral bodies were visualized. The skin and subcutaneous tissue was anesthetized with approximately 10 mL of 1% lidocaine using a 25-gauge regular needle. Under direct visualization on fluoroscopy on a lateral view, using a 21-gauge 10-cm with a 10-mm curved active-tip radiofrequency ablation needle, the needle was passed through the skin. The tip of the needle was maneuvered and directed towards the epiphyseal junction of each corresponding vertebra, starting on the right C4, ending on the right C7, passing through the C5 and C6. Once the tip of the needle was at the vicinity of the medial branch and at the middle of the trapezoid on the lateral view, the stylette of each needle was then removed. After negative aspiration of blood or CSF and confirmation on AP, oblique as well as lateral view, radiofrequency ablation probe was then inserted at each level. Impedance was then recorded at C4 to be 293 ohm, at C5 to be 272 ohm, at C6 to be 261 ohm, and at C7 to be 277 ohm. Motor-evoked potential was then initiated to 1.5 volt without any motor re sponse to each corresponding level or the right arm. The probe was then removed intact and a total of 4 mL of preservative-free 1% lidocaine was injected in divided doses between those four levels after negative aspiration of blood or CSF. After repeated confirmation, the radiofrequency ablation probe was then inserted and after repeated confirmation on AP, oblique as well as lateral view, radiofrequency ablation was then initiated to approximately 80 degree Celsius for 60 second at each level. Once concluded, the probe was then removed intact. A total of 4 mL of preservative-free 0.25% Marcaine with 40 mg of Depo-Medrol was injected in divided doses between those four levels. The needles were then removed intact. The patient experienced no sign or symptoms of intrathecal or intravascular injection. The patient experienced no paresthesia. The procedure was completed without any apparent difficulty or any complications. The patient appeared to tolerate it well. Sensory as well as motor exam was unchanged from prior to the procedure. ASSESSMENT AND PLAN: This is a 51-year-old female with cervical spondylosis, cervical degenerative disc disease, cervical facet arthropathy status post right-sided cervical radiofrequency ablation of the medial branch at C4-C7 patient will continue her current medications, patient will follow in approximately 2 weeks for reevaluation.
== END 2021-04-14 10:56 | disposition home or self-care (01) ==
LOC: SDC 08:59 → AC 09:00
PROVIDERS: Anesthesiology; PCP Family Medicine Geriatric Medicine; Referring Provider Anesthesiology Pain Medicine; Visit Provider Anesthesiology Pain Medicine
PROC: (CPT 64633; principal; 2021-04-14 10:25)
DX: M47.812 Spondylosis without myelopathy or radiculopathy, cervical region (principal); M50.30 Other cervical disc degeneration, unspecified cervical region; M48.02 Spinal stenosis, cervical region; E78.5 Hyperlipidemia, unspecified; E55.9 Vitamin D deficiency, unspecified; K21.9 Gastro-esophageal reflux disease without esophagitis; G47.33 Obstructive sleep apnea (adult) (pediatric); Z79.899 Other long term (current) drug therapy; Z98.84 Bariatric surgery status
CPT/HCPCS: 01936; 64633; 64634 ×2; 72050; 76000; 81025; J7120

== ENCOUNTER → 2021-04-24 08:13 | Outpatient (CLI) | payer OTHER, SELFPAY ==
[2021-01-22 13:10] VITALS: BMI 24.2
--- NOTE | 2021-04-24 08:15 | MRI_ITS ---
STUDY: MRI LEFT HIP REASON FOR EXAM: Left hip pain for 3-4 months, no specific injury, follow-up stress fracture. TECHNIQUE: Standardized fat and water weighted pulse sequences were obtained in all 3 orthogonal planes. COMPARISON: MRI images 02/17/2021. FINDINGS: Normal hip joint without articular joint space narrowing. Normal acetabulum. There is a tear of the left superior labrum (inversion recovery coronal images 14-16) as on the prior study. Normal femoral head. There is no interval change of the stress fracture of the medial aspect of the base of the left femoral neck extending into the intertrochanteric femur/lesser tuberosity (T1 coronal image 14) with bone edema (inversion recovery sagittal images 13-15). Normal gluteus minimus, medius and iliopsoas tendons and distal insertions. There is no trochanteric, iliopsoas or iliopectineal bursitis. Normal superior and inferior pubic rami. Normal pubic symphysis. Normal ischial tuberosity. Normal origin of the hamstring tendons. Normal visualized iliac wing, sacroiliac joint, and sacral ala. There are nabothian cysts (inversion recovery sagittal images 10-12) and a left adnexal cyst (inversion recovery coronal images 9-11) measuring 3.8 cm in length. MRI/Lower Ext Joint Only (Routine) IMPRESSION: No interval change of stress fracture of the medial aspect of the left femoral neck extending into the intertrochanteric femur/lesser tuberosity. Left superior labral tear as on the prior study. Left adnexal cyst and nabothian cysts. Electronically Signed: Ernie Jacobsen MD at 9:36 EDT Tel , Service support ,
== END ==
PROVIDERS: PCP Family Medicine Geriatric Medicine; Visit Provider Orthopaedic Surgery Sports Medicine
DX: M84.359A Stress fracture, hip, unspecified, initial encounter for fracture (principal); X58.XXXA Exposure to other specified factors, initial encounter; Y93.9 Activity, unspecified; Y92.9 Unspecified place or not applicable; Y99.9 Unspecified external cause status
CPT/HCPCS: 73721

== ENCOUNTER → 2021-04-30 09:53 | Outpatient (CLI) | payer OTHER, SELFPAY ==
--- NOTE | 2021-04-30 09:59 | BD_ITS ---
STUDY: DUAL ENERGY X-RAY ABSORPTIOMETRY / DXA REASON FOR EXAM: Female, 51 years old. [id number] TECHNIQUE: Bone Mineral Density (BMD) measurements of lumbar spine and right hip were obtained. COMPARISON: Comparison is made with prior examination dated 11/01/2018. FINDINGS: Lumbar Spine (L1-L4): g/cm2 (1.105) / T-score (0.5) / Z-score (1.2) Findings are suggestive of normal bone density with a low fracture risk. Right Femur Total: g/cm2 (0.964) / T-score (0.2) / Z-score (0.6) Right Femoral Neck: g/cm2 (0.770) / T-score (-0.7) / Z-score (0.0) The T-Scores on the most recent prior examination were: Lumbar Spine (L1-L4): There has been worsening of bone density since the previous examination. Right Femur Total: which represents a worsening of 6.3%. BD/Dexa Bone Density Study IMPRESSION: The patient is considered normal as outlined below according to World Dann Organization (WHO) criteria with a low fracture risk. There has been worsening of bone density since the previous examination. Reference Information: The T-score is the number of standard deviations above or below the standard which is normal for young adults at their peak bone mineral density. The World Health Organization (WHO) interprets the T-scores as follows: Above -1 Normal bone density Between -1 and -2.5 Osteopenia Equal to / or below -2.5 Osteoporosis As a practical clinical guideline, osteopenia may be graded as follows: Mild -1 through -1.5 Moderate -1.6 through -2.0 Severe -2.1 through -2.4 The Z-score is the number of standard deviations above or below age-matched controls. A Z-score of less than -1.5 would be considered abnormal. References: 1. NIH Osteoporosis and Related Bone Diseases www osteo.org 2. International Society for Clinical Densitometry www iscd.org 3. National Osteoporosis Foundation www nof.org Electronically Signed: Khang Burrell MD at 15:33 EDT , Service support ,
== END ==
PROVIDERS: PCP Family Medicine Geriatric Medicine; Referring Provider Family Medicine Geriatric Medicine; Visit Provider Family Medicine Geriatric Medicine
DX: Z78.0 Asymptomatic menopausal state (principal)
CPT/HCPCS: 77080

== ENCOUNTER → 2021-05-20 10:14 | Outpatient (CLI) | payer OTHER, SELFPAY ==
[2021-05-20 11:16] LABS: Vitamin B12 855 pg/mL (211-911); Vitamin D,25 Hydroxy 34.7 ng/mL
[2021-05-20 11:29] LABS: ALB/GLOB Ratio 0.8 RATIO (0.9-2.4); AST(SGOT) 16 U/L (15-37); Alanine Aminotransfer ALT/SGPT 20 U/L (13-56); Albumin, Serum 2.8 g/dL (3.2-5.0); Alkaline Phosphatase 86 U/L (45-117); Anion Gap 8 (5-15); BUN 18 mg/dL (7-18); BUN/Creat Ratio 32.3 RATIO (10-20); Calcium,Total 8.4 mg/dL (8.5-10.1); Chloride 104 mmol/L (98-107); Creatinine, Serum 0.56 mg/dL (0.55-1.02); EST Glomerular Filtration Rate 123 mL/min (>60); Est Glom Filt Rate - Afr Amer 148 mL/min (>60); Ferritin 37 ng/mL (8-252); Globulin 3.5 g/dL (2.2-4.2); Glucose 84 mg/dL (74-106); Iron 82 ug/dL (50-170); Iron Binding Capacity,Total 322 ug/dL (250-450); PERCENT IRON SATURATION 25.5 % (15.0-55.0); Protein, Total 6.3 g/dL (6.4-8.2); Sodium Level 138 mmol/L (136-145)
[2021-05-20 11:33] LABS: PTHIN 40.1 pg/mL (18.4-80.1)
[2021-05-24 19:06] LABS: Vitamin B1, Thiamine 167.5 nmol/L (66.5-200.0)
[2021-05-24 21:11] LABS: Copper, Serum or Plasma 136 ug/dL (80-158)
== END ==
PROVIDERS: PCP Family Medicine Geriatric Medicine; Visit Provider Family Medicine Geriatric Medicine
DX: D64.9 Anemia, unspecified (principal); E53.8 Deficiency of other specified B group vitamins; E21.5 Disorder of parathyroid gland, unspecified; E55.9 Vitamin D deficiency, unspecified
CPT/HCPCS: 36415; 80053; 82306; 82525; 82607; 82728; 82746; 83540; 83550; 83970; 84425

== ENCOUNTER → 2021-05-28 12:45 | Outpatient (CLI) | payer OTHER, SELFPAY ==
--- NOTE | 2021-05-28 12:48 | RAD_ITS ---
STUDY: X-RAY - LEFT HAND REASON FOR EXAM: Female, 51 years old. HAND PAIN TECHNIQUE: 3 view(s) of the hand. COMPARISON: None. FINDINGS: Normal radiocarpal articulation. Normal distal radioulnar joint. Normal visualized carpal bones. Normal carpal articulations Normal carpometacarpal articulation of the thumb. Normal second through fifth carpometacarpal joints. Normal metacarpi. Normal metacarpophalangeal joint of the thumb. Normal interphalangeal joint of the thumb. Normal proximal and distal phalanges of the thumb. Normal metacarpophalangeal joints of the second through fifth fingers. There is some joint space narrowing of the fourth and fifth distal interphalangeal joints consistent with mild osteoarthritis. Normal phalanges of the second through fifth fingers. The soft tissue structures are unremarkable. RAD/Hand Min 3 Views IMPRESSION: Mild osteoarthritis. Electronically Signed: Keith Laguerre MD at 14:18 EDT Tel , Service support ,
--- NOTE | 2021-05-28 12:48 | RAD_ITS ---
STUDY: X-RAY - RIGHT KNEE REASON FOR EXAM: Female, 51 years old. KNEE PAIN TECHNIQUE: 4 view(s) of the knee. COMPARISON: 07/17/2013 FINDINGS: Normal visualized distal femur. Normal visualized proximal tibia and fibula. Normal proximal tibiofibular articulation. Normal medial femorotibial compartment. Normal lateral femorotibial compartment. Normal patellofemoral articulation. The soft tissue structures are unremarkable. RAD/Knee 4 or More Views IMPRESSION: Normal x-ray examination of the knee. Electronically Signed: Keith Laguerre MD at 14:15 EDT Tel , Service support ,
--- NOTE | 2021-05-28 12:48 | RAD_ITS ---
STUDY: X-RAY - LEFT KNEE REASON FOR EXAM: Female, 51 years old. KNEE PAIN TECHNIQUE: 4 view(s) of the knee. COMPARISON: None. FINDINGS: Normal visualized distal femur. Normal visualized proximal tibia and fibula. Normal proximal tibiofibular articulation. Normal medial femorotibial compartment. Normal lateral femorotibial compartment. Normal patellofemoral articulation. The soft tissue structures are unremarkable. RAD/Knee 4 or More Views IMPRESSION: Normal x-ray examination of the knee. Electronically Signed: Keith Laguerre MD at 14:15 EDT Tel , Service support ,
--- NOTE | 2021-05-28 12:48 | RAD_ITS ---
STUDY: X-RAY - RIGHT HAND REASON FOR EXAM: Female, 51 years old. HAND PAIN TECHNIQUE: 3 view(s) of the hand. COMPARISON: None. FINDINGS: Normal radiocarpal articulation. Normal distal radioulnar joint. Normal visualized carpal bones. Normal carpal articulations Normal carpometacarpal articulation of the thumb. Normal second through fifth carpometacarpal joints. Normal metacarpi. Normal metacarpophalangeal joint of the thumb. Normal interphalangeal joint of the thumb. Normal proximal and distal phalanges of the thumb. Normal metacarpophalangeal joints of the second through fifth fingers. Normal proximal and distal interphalangeal joints of the second through fifth fingers. Normal phalanges of the second through fifth fingers. The soft tissue structures are unremarkable. RAD/Hand Min 3 Views IMPRESSION: Normal x-ray examination of the hand. Electronically Signed: Keith Laguerre MD at 14:16 EDT Tel , Service support ,
== END ==
PROVIDERS: PCP Family Medicine Geriatric Medicine; Referring Provider Family Medicine Geriatric Medicine; Visit Provider Family Medicine Geriatric Medicine
DX: M25.561 Pain in right knee (principal); M25.562 Pain in left knee; M79.641 Pain in right hand; M79.642 Pain in left hand
CPT/HCPCS: 73130; 73564

== ENCOUNTER → 2021-07-09 09:34 | Outpatient (CLI) | payer OTHER, SELFPAY ==
[2021-07-09 11:01] LABS: Absolute Lymphocyte Count 1.21 X10^3/uL (0.83-4.51); Absolute Neutrophil Count 4.8 X10^3/uL (2.0-7.7); Basophil# 0.03 X10^3/uL; Basophil% 0.4 % (0-1); Eosinophil# 0.12 X10^3/uL; Eosinophils% 1.8 % (0-5); Hematocrit 43.2 % (37-47); Hemoglobin 13.7 g/dL (12.0-15.0); Lymphocyte # 1.21 X10^3/ul (0.83-4.51); Lymphocyte % 17.9 % (19-41); Mean Corp Hgb Conc 31.7 g/dL (32-36); Mean Corpuscular Hgb 30.6 pg (27.0-32.0); Mean Corpuscular Volume 96.6 fL (81-99); Mean Platelet Vol. 11.4 fl (6.2-12.0); Monocyte# 0.59 X10^3/uL; Monocyte% 8.7 % (0-10); NRBC Flagged by Analyzer 0 % (0-5); Neutrophil # 4.76 X10^3/uL (2.7-7.7); Neutrophil % 70.6 % (47-70); Platelet Count 270 K/mm3 (150-450); RBC Distribution Width CV 12.8 % (11.6-14.6); RBC Distribution Width SD 45.5 fl (35.1-43.9); Red Blood Count 4.47 M/mm3 (4.2-5.4); White Blood Count 6.8 K/mm3 (4.4-11.0)
[2021-07-09 11:11] LABS: International Normalized Ratio 0.9; Prothrombin Time (Protime)PT. 11.6 SECONDS (11.7-14.9)
[2021-07-09 11:17] LABS: Anion Gap 6 (5-15); BUN 13 mg/dL (7-18); BUN/Creat Ratio 17.2 RATIO (10-20); Calcium,Total 8.6 mg/dL (8.5-10.1); Chloride 106 mmol/L (98-107); Creatinine, Serum 0.76 mg/dL (0.55-1.02); EST Glomerular Filtration Rate 86 mL/min (>60); Est Glom Filt Rate - Afr Amer 104 mL/min (>60); Glucose 59 mg/dL (74-106); Potassium 3.9 mmol/L (3.5-5.1); Sodium Level 140 mmol/L (136-145)
== END ==
PROVIDERS: PCP Family Medicine Geriatric Medicine; Visit Provider Family Medicine Geriatric Medicine
DX: Z01.818 Encounter for other preprocedural examination (principal); R53.83 Other fatigue
CPT/HCPCS: 36415; 80048; 85025; 85610

== ENCOUNTER 2021-08-03 19:45 | Emergency (ER) | payer OTHER, SELFPAY ==
[2021-08-03 19:45] VITALS: BP 139/87; PULSE 80; RESP 18; TEMP 36.3; O2SAT 100; BMI 23.2
--- NOTE | 2021-08-03 20:16 | EX.ED.DYSGE1 ---
HPI History of Present Illness Chief Complaint: Nausea/Vomiting Informant: patient Narrative Narrative: 51-year-old female states that she is postop from a labral repair [facility]. She has been taking Percocet for pain states that she has been experiencing a good deal of nausea and dry heaves. She has had prior Royce-en-Y gastric bypass. She states that she last took the pain medication this morning from a pain standpoint she is doing okay but she cannot stop having dry heaves and nausea. No reported fevers. She did have some diarrhea yesterday. She does not feel bloated or distended. [facility] Medical History Anemia Back pain Cervical disc herniation GI allergy to food Headache History of abnormal uterine bleeding History of ankle fracture history of bladder sling History of blood clots Shoulder pain Status post hysteroscopy Stomach ulcer Home Medications paroxetine HCl 20 mg PO DAILY 11/01/17 [History Last Taken 07/28/18] baclofen 5 mg tablet 5 mg PO DAILY PRN 09/27/19 [History Last Taken Unknown] calcium carbonate 600 mg PO DAILY 12/22/19 [History Last Taken Unknown] vit,[id number] 1 tab PO DAILY 12/22/19 [History Last Taken Unknown] sumatriptan succinate 50 mg PO DAILY 09/29/20 [History Last Taken 09/29/20 50 MG] fluconazole 150 mg tablet 150 mg PO Q3D #2 tab 01/22/21 [Rx Last Taken Unknown] promethazine 25 mg PO Q6H PRN PRN #15 tablet 08/03/21 [Rx Last Taken Unknown] Allergy/AdvReac Type Severity Reaction Status Date / Time NSAIDS (Non-Steroidal AdvReac Other Verified 01/22/21 13:06 Anti-Inflamma Family History Other Alcoholism Arthritis CAD (coronary artery disease) CVA (cerebral vascular accident) Diabetes Heart disease Kidney disease Polycythemia Surgical History History of ankle surgery History of bilateral breast reduction surgery History of gastric bypass History of lumbar discectomy S/P bunionectomy S/P cholecystectomy Status post hip surgery uterine ablation Social History Smoking Status: Never smoker alcohol intake: current alcohol intake frequency: holidays/special occasions only substance use type: does not use caffeine: Yes what type of physical activity do you participate in: walking, running, bicycling and aerobics frequency: 5-6 times per week seatbelt use: always do you feel safe at home: Yes additional social history: - Ernesto ROS ROS ED Constitutional Constitutional ED: Denies chills or weight loss Eyes Eyes: Denies change in vision or diplopia ENT ENT ED: Denies ear pain, rhinorrhea or sore throat Cardiovascular Cardiovascular: Denies chest pain, orthopnea, palpitations or racing heartbeat Respiratory/Chest Respiratory/Chest: Denies cough, dyspnea or orthopnea Gastrointestinal Gastrointestinal: Reports nausea and vomiting; Denies abdominal pain or diarrhea Genitourinary Genitourinary ED: Denies dysuria, hematuria or urinary frequency Musculoskeletal Musculoskeletal: Reports other Details: left hip pain ; Denies arthralgias or myalgias Integumentary Denies abscess or rash Neurologic Neurologic: Denies headache(s) or weakness Psychiatric Psychiatric: Denies anxiety, depression, suicidal ideation or suicidal thoughts Endocrine Endocrinology: Denies polydipsia, polyphagia or polyuria Allergic/Immunologic Allergic/Immunologic ED: Denies mouth swelling, tongue swelling or urticaria EXAM Physical Exam Const Vital Signs: 08/03/21 19:45 Temperature 97.4 F L Temperature Source Temporal Pulse Rate 80 Respiratory Rate 18 Blood Pressure 139/87 H Blood Pressure Mean 104 Pulse Ox 100 Oxygen Delivery Method Room Air Positive well nourished and well developed General Appearance ED: well developed HEENT Reports normocephalic, head/scalp atraumatic and moist mucous membranes Eyes PERRL and EOMs intact bilaterally Neck no lymphadenopathy, supple and no JVD Resp normal respiratory effort and clear to auscultation bilaterally Cardio regular rate, regular rhythm and no murmurs GI normal to inspection, nondistended, normoactive bowel sounds and non-tender Palpation: soft Back/Spine no CVA tenderness and normal ROM Extremity normal to inspection General Extremety ED: Negative for edema General Extremity: Negative for edema Neuro oriented x3 and CN's II-XII intact bilaterally Sensorium / Orientation: alert Motor Exam: strength 5/5 throughout Psych mental status grossly normal Mood & Affect: Negative for depressed or tearful Skin no rashes or lesions noted and no wounds MDM MDM MDM Narrative Medical decision making narrative: Basic blood work is negative except for potassium of 3.3. She was given oral potassium. She also received IV fluids and Zofran.-The patient has Phenergan as she already has Zofran at home. She does not wish a different pain medication as she is doing well from a pain standpoint. Return if worsening or concerns Lab Data Attestation: I reviewed the patient's lab results. Labs: Laboratory Results - last 24 hr 08/03/21 08/03/21 20:05 20:05 WBC 8.1 RBC 4.27 Hgb 13.0 Hct 41.0 MCV 96.0 MCH 30.4 MCHC 31.7 L RDW Std Deviation 44.9 H RDW Coeff of Hermilo 12.7 Plt Count 289 MPV 10.7 Immature Gran % (Auto) 0.400 Neut % (Auto) 69.4 Lymph % (Auto) 17.0 L [place] % (Auto) 7.3 Eos % (Auto) 5.4 H Baso % (Auto) 0.5 Absolute Neuts (auto) 5.6 Absolute Lymphs (auto) 1.38 Nucleated RBC % 0 Sodium 140 Potassium 3.3 L Chloride 106 Carbon Dioxide 26.0 Anion Gap 8 BUN 7 Creatinine 0.55 Estim Creat Clear Calc 115.83 Est GFR (MDRD) Af Amer 151 Est GFR (MDRD) Non-Af 124 BUN/Creatinine Ratio 12.7 Glucose 93 Calcium 9.0 Total Bilirubin 0.40 AST 15 ALT 23 Alkaline Phosphatase 82 Total Protein 6.7 Albumin 2.6 L Globulin 4.1 Albumin/Globulin Ratio 0.6 L Lipase 47 L Discharge Plan Triage Chief Complaint: Nausea/Vomiting ED Provider: Ramsey Henderson Dx/Rx/DC Orders Clinical Impression: Vomiting, Acute hypokalemia Instructions: ED Vomiting (Adult) Prescriptions: New promethazine [promethazine] 25 MG tablet 25 mg PO Q6H PRN PRN (Reason: Nausea) Qty: 15 RF: 0 No Action baclofen 5 mg tablet 5 mg PO DAILY PRN (Reason: Pain Or Fever) RF: 0 fluconazole [Diflucan] 150 mg tablet 150 mg PO Q3D Qty: 2 RF: 0 paroxetine HCl 20 MG tablet 20 mg PO DAILY RF: 0 calcium carbonate 600 MG tablet 600 mg PO DAILY RF: 0 vit,[id number] 1 TABLET tablet 1 tab PO DAILY RF: 0 sumatriptan succinate 50 MG tablet 50 mg PO DAILY RF: 0 Primary Care Provider: Albaro Dover Chi Referrals: Albaro Dover Chi, MD [Primary Care Provider] - As Needed Disposition Disposition: Home, Self Care
[2021-08-03 20:20] LABS: Absolute Lymphocyte Count 1.38 X10^3/uL (0.83-4.51); Absolute Neutrophil Count 5.6 X10^3/uL (2.0-7.7); Basophil# 0.04 X10^3/uL; Basophil% 0.5 % (0-1); Eosinophil# 0.44 X10^3/uL; Eosinophils% 5.4 % (0-5); Lymphocyte # 1.38 X10^3/ul (0.83-4.51); Mean Corp Hgb Conc 31.7 g/dL (32-36); Mean Corpuscular Hgb 30.4 pg (27.0-32.0); Mean Platelet Vol. 10.7 fl (6.2-12.0); Monocyte# 0.59 X10^3/uL; Monocyte% 7.3 % (0-10); NRBC Flagged by Analyzer 0 % (0-5); Neutrophil # 5.62 X10^3/uL (2.7-7.7); Neutrophil % 69.4 % (47-70); Platelet Count 289 K/mm3 (150-450); RBC Distribution Width CV 12.7 % (11.6-14.6); RBC Distribution Width SD 44.9 fl (35.1-43.9); Red Blood Count 4.27 M/mm3 (4.2-5.4); White Blood Count 8.1 K/mm3 (4.4-11.0)
[2021-08-03] MEDS: Ondansetron 4 MG/2 ML Vial IV (20:22)
[2021-08-03] MEDS: 0.9% Normal Saline 1,000 ML 1000 ML IV (20:23)
[2021-08-03 20:33] LABS: ALB/GLOB Ratio 0.6 RATIO (0.9-2.4); AST(SGOT) 15 U/L (15-37); Alanine Aminotransfer ALT/SGPT 23 U/L (13-56); Albumin, Serum 2.6 g/dL (3.2-5.0); Alkaline Phosphatase 82 U/L (45-117); Anion Gap 8 (5-15); BUN 7 mg/dL (7-18); BUN/Creat Ratio 12.7 RATIO (10-20); Chloride 106 mmol/L (98-107); Creatinine, Serum 0.55 mg/dL (0.55-1.02); EST Glomerular Filtration Rate 124 mL/min (>60); Est Glom Filt Rate - Afr Amer 151 mL/min (>60); Estimated Creatinine Clearance 115.83 ml/min; Globulin 4.1 g/dL (2.2-4.2); Glucose 93 mg/dL (74-106); Lipase 47 U/L (73-393); Potassium 3.3 mmol/L (3.5-5.1); Protein, Total 6.7 g/dL (6.4-8.2); Sodium Level 140 mmol/L (136-145)
[2021-08-03] MEDS: proMETHazine 25 MG Tablet PO (22:10)
[2021-08-03] MEDS: Potassium Chloride Oral Tablet 20 MEQ 40 MEQ PO (22:10)
[2021-08-03 22:11] VITALS: PULSE 73; O2SAT 96
== END 2021-08-03 22:11 | disposition home or self-care (01) ==
PROVIDERS: Emergency Provider Emergency Medicine; PCP Family Medicine Geriatric Medicine; Visit Provider Emergency Medicine
DX: R11.2 Nausea with vomiting, unspecified (principal); E87.6 Hypokalemia
CPT/HCPCS: 80053; 83690; 85025; 96361; 96374; 99282; J7030; J2405

== ENCOUNTER 2021-10-20 16:00 | Outpatient (RCR) | payer OTHER, SELFPAY ==
--- NOTE | 2021-08-13 07:44 | HP.PTEVAL_ITS ---
Patient's Visit Information MINDI GERBER is a 51 year old F referred to Physical Therapy by Dr. Mike Norris MD with a diagnosis of Left Labral Repair. Date of Evaluation: 08/13/21 Physical Therapist: Teresa Calle DPT - Visit Plan Frequency: 2x /Week Duration: 4 Weeks Plan: Left Labral Repair 07/30/21- Follow Protocol. HEP Given IE: TA contraction with september, SKTC, Bug, prone superman, Quad Cat/Cow, Clif pose - Subjective Patient reports Left Labral Repair 07/30/[address] Aviles. Went home after procedure and has been following directions since. Was using a CPM machine but has not been using the last few days. Jun 2020 had her right labrum repaired. She reports pain at this point is achy. Worst: 2/10 Agg: nothing really. Best: 0/10 Eases: rest. Pain is located in the left buttocks and into the g roin. No N/T in the LE. Saw him yesterday- he was happy with her progress- and let her go to a single crutch. No x-rays or MRI since surgery. 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 Very active- like to run- she wants to run several times a week 3 miles at a time- also back to weights. Wants to get back to group exercise class. Sleep: in the beginning but not anymore- and is back to sleeping on her left side. PMHx: none Meds: Paxil. - Objective Posture: good throughout session. Gait: PWB with single axillary crutch- educated to put in right hand. HR/TR: able with slight weight shift due to restrictions. SLS: not tested due to PWB status. Sensation: WNL- does report upper thigh burning with touch occasionally. Hip ROM: Flexion: 110 degrees, Abd: 30 degrees, IR: neutral, ER: 30 degrees Ext: neutral- ROM to limit of restrictions- no end feel. Hip flexion end feel was reports of discomfort not pain. Strength: Ankle:5/5, Knee: 5/5. Hip isometric in neutral: 4+/5 throughout without pain, Core: fair. Flex: HS: moderate, Gastroc: moderated - Balance/Special Test Scores Lower Extremity Functional Score: 0 - Goals Goal 1:: Patient will be I with HEP and progression Goal Time Frame: 4-6 Weeks Goal 2:: Patient will ambulate >300 feet with normalized gait pattern (follow protocol) Goal Time Frame: 4-6 Weeks Goal 3:: Patient will asc/desc 8 stairs recip with no HR and good technique (follow protocol) Goal Time Frame: 4-6 Weeks Goal 4:: Patient will report no pain with full ROM of the left hip (follow protocol) Goal Time Frame: 4-6 Weeks - Rehabilitation Potential Physical Therapy Diagnosis: Patient presents s/p Left Labral Repair 07/30/21. She has hypomobility- decreased pain free ROM, strength, flex and muscular endurance leading to decreased WB status and ability to perform ADL's. Rehabilitation Potential: Good - Anticipated Interventions Patient/Client Instruction: Educate patient on: Benefits of Fitness Program Therapeutic Exercise to Include: Strength training, Endurance training, Balance training, Coordination, Agility training, Body mechanics, Postural training, Flexibilty training, Gait and locomotor training, Neuromotor development, Passive ROM, Active ROM, Dynamic Lumbar Stabilization, Scapular Strength/Stabilization For the Purpose of:: To improve muscle performance and motor function TENS: Yes Cryotherapy (ice pack, ice massage): Yes Thermo therapy (hot pack): Yes Ultrasound (thermal/non thermal): No Thank you for the opportunity to evaluate your patient. For Medicare and Medicare HMO plans, please review the plan of care and approve it. It will need to be FAXED BACK to us at [phone] for Medicare purposes. For Medicare only, by signing this I certify the plan of care. Please let me know if there are questions or concerns regarding this plan of care. Physician Signature: Date:
--- NOTE | 2021-09-22 16:55 | HP.PTREVAL ---
Dr. Mike Norris MD, It has been my pleasure to treat MINDI GERBER over the last 11 visits for Left Labral Repair. Please see the progress note below for an update on the physical therapy plan of care! Subjective: Goes back to [place] in September. She feels the hip is improving. Her balance is not as good on that side, but feels she is improving. She has no pain in the hip. She plans to walk a 5K on Wednesday. She can do most things but isn't allowed to run. Objective/Function: Posture: good throughout session. Gait: no deviation noted HR/TR: no weight shift no pain SLS: 30 sec increased sway and muscle activation Sensation: WNL- does report upper thigh burning with touch occasionally. Hip ROM: WNL in all planes Strength: Ankle:5/5, Knee: 5/5. Hip isometric in neutral: 4+/5 throughout without pain, Core: fair. Flex: HS: moderate, Gastroc: moderated Plan Plan: Left Labral Repair 07/30/21- Follow Protocol Balance/Gait/Functional tests - Balance/Special Test Scores Lower Extremity Functional Score: 60 Goals Goal 1:: Patient will be I with HEP and progression Goal Time Frame: 4-6 Weeks Goal Progress: Progressing Goal 2:: Patient will ambulate >300 feet with normalized gait pattern (follow protocol) Goal Time Frame: 4-6 Weeks Goal Progress: Progressing Goal 3:: Patient will asc/desc 8 stairs recip with no HR and good technique (follow protocol) Goal Time Frame: 4-6 Weeks Goal Progress: Progressing Goal 4:: Patient will report no pain with full ROM of the left hip (follow protocol) Goal Time Frame: 4-6 Weeks Goal Progress: Progressing Anticipated Interventions Patient/Client Instruction: Educate patient on: Benefits of Fitness Program Therapeutic Exercise to Include: Strength training, Endurance training, Balance training, Coordination, Agility training, Body mechanics, Postural training, Flexibilty training, Gait and locomotor training, Neuromotor development, Passive ROM, Active ROM, Dynamic Lumbar Stabilization, Scapular Strength/Stabilization For the Purpose of:: To improve muscle performance and motor function TENS: Yes Cryotherapy (ice pack, ice massage): Yes Thermo therapy (hot pack): Yes Ultrasound (thermal/non thermal): No Please do not hesitate to contact me at [phone] by phone or if you have questions or concerns regarding this new plan of care! Sincerely, ALE FlynnT
--- NOTE | 2021-10-20 16:10 | HP.PTDCSUM ---
It has been my pleasure to treat MINDI GERBER referred by Dr. Mike Norris MD, with the diagnosis of Left Labral Repair for a total of 18 visit(s). Discharge Date: Please see the following information for a summary of their discharge status. Subjective: Patient reports that she has some right sided soreness- but no left sided soreness. She is back to everything. She would like to be faster and stronger- she is now walk/running a mile. She knows she will continue her home exercises. She has been running/walking 3 miles. % Improvement: 90 Objective/Function: Posture: good throughout session. Gait: no deviation noted Squat: good no weight shifting or deviation noted SLS: 30 sec stable Sensation: WNL. Hip ROM: WNL in all planes Strength: Ankle:5/5, Knee: 5/5. Hip isometric in neutral: 4+/5 throughout without pain, Core: fair plus. Flex: HS: moderate, Gastroc: moderated Goal 1:: Patient will be I with HEP and progression Goal Progress: Goal Met Goal 2:: Patient will ambulate >300 feet with normalized gait pattern (follow protocol) Goal Progress: Goal Met Goal 3:: Patient will asc/desc 8 stairs recip with no HR and good technique (follow protocol) Goal Progress: Goal Met Goal 4:: Patient will report no pain with full ROM of the left hip (follow protocol) Goal Progress: Goal Met Plan: Discharge to I home exercise program- education on importance of strength training in addition to running. If there are questions or concerns regarding this patient's physical therapy, please feel free to call me at [phone]. Thank you for the referral of this patient. Sincerely, Teresa Calle, DPT Balance/Gait/Functional tests - Balance/Special Test Scores Lower Extremity Functional Score: 80
== END 2021-10-20 19:00 | disposition home or self-care (01) ==
LOC: PT 16:00
PROVIDERS: PCP Family Medicine Geriatric Medicine; Referring Provider Orthopaedic Surgery Sports Medicine; Visit Provider Orthopaedic Surgery Sports Medicine
DX: M25.852 Other specified joint disorders, left hip (principal)
CPT/HCPCS: 97110; 97161; 97164

== ENCOUNTER 2022-03-09 08:03 | Day surgery (SDC) | payer OTHER, SELFPAY ==
[2022-03-09] VITALS (9 sets, daily range): BP systolic 111–131; BP diastolic 70–85; PULSE 54–60; RESP 16–18; TEMP 35.9–37.2; O2SAT 97–100; BMI 25.8
[2022-03-09 08:29] LABS: Internal QC Validated? YES +Cl - CLEAR BKGD; Pregnancy, Urine Negative Negative
[2022-03-09] MEDS: Lactated Ringers 1,000 ML 15 ML IV (08:29)
--- NOTE | 2022-03-09 09:30 | RAD_ITS ---
STUDY: INTRAOPERATIVE FLUOROSCOPY TECHNIQUE: The examination was performed with referring physician in attendance. Under fluoroscopic observation, fluoroscopic images were obtained. Radiologist was not present for the study. Radiologist did not perform the procedure. This dictation is for documentation of the radiation dosage only. There is no interpretation of the images. TOTAL NUMBER OF IMAGES: 1 COMPARISON: None RADIATION DOSE: 1.55 mGy FLUOROSCOPY TIME: 17.6 seconds REASON FOR EXAM: CERVICAL RADIO FREQ ABLATION C4-7, R Female, 52 years old. FINDINGS: Images demonstrate needles directed at the cervical spine levels. RAD/Cerv Spine 2 or 3 Views IMPRESSION: Fluoroscopic assistance images were obtained. Dictation for documentation purposes only. Electronically Signed: Dylan Reyna MD at 14:48 EDT ,
[2022-03-09] MEDS: Bupivacaine 0.25% 30 ML Vial (09:35)
[2022-03-09] MEDS: MethylPREDNISolone Acetate 40 MG/ML Vial IM (09:35)
[2022-03-09] MEDS: Lidocaine 1% (5 ml sdv) 5 ML Vial (09:35)
--- NOTE | 2022-03-09 12:23 | PCM.OPRPT ---
Report of Operation Date of Procedure: 03/09/22 Description of Surgical Findings:: PREOPERATIVE DIAGNOSIS: Cervical spondylosis, cervical degenerative disc disease, cervical facet arthropathy POSTOPERATIVE DIAGNOSIS: Cervical spondylosis, cervical degenerative disc disease, cervical facet arthropathy PROCEDURE PERFORMED: Right-sided cervical radiofrequency ablation of the medial branch at C4, C5, C6, and C7. ANESTHESIA: MAC. BLOOD LOSS: Minimal. COMPLICATIONS: None. DESCRIPTION OF PROCEDURE: History and physical of today was reviewed. Risks and benefits of the procedure were explained. The patient understood and agreed to proceed. Informed consent was obtained. IV inserted per routine protocol. The patient was taken to the operating room and placed in the prone position with a pillow positioned underneath the chest. The neck area was prepped and draped in a sterile fashion using iodine x3. Under fluoroscopy guidance on an AP view, the C4 through C7 vertebral bodies were visualized. The skin and subcutaneous tissue was anesthetized with approximately 10 mL of 1% lidocaine using a 25-gauge regular needle. Under direct visualization on fluoroscopy on a lateral view, using a 21-gauge 10-cm with a 10-mm curved active-tip radiofrequency ablation needle, the needle was passed through the skin. The tip of the needle was maneuvered and directed towards the epiphyseal junction of each corresponding vertebra, starting on the right C4, ending on the right C7, passing through the C5 and C6. Once the tip of the needle was at the vicinity of the medial branch and at the middle of the trapezoid on the lateral view, the stylette of each needle was then removed. After negative aspiration of blood or CSF and confirmation on AP, oblique as well as lateral view, radiofrequency ablation probe was then inserted at each level. Impedance was then recorded at C4 to be 308 ohm, at C5 to be 385 ohm, at C6 to be 372 ohm, and at C7 to be 309 ohm. Motor-evoked potential was then initiated to 1.5 volt without any motor response to each corresponding level or the right arm. The probe was then removed intact and a total of 4 mL of preservative-free 1% lidocaine was injected in divided doses between those four levels after negative aspiration of blood or CSF. After repeated confirmation, the radiofrequency ablation probe was then inserted and after repeated confirmation on AP, oblique as well as lateral view, radiofrequency ablation was then initiated to approximately 80 degree Celsius for 60 second at each level. Once concluded, the probe was then removed intact. A total of 4 mL of preservative-free 0.25% Marcaine with 40 mg of Depo-Medrol was injected in divided doses between those four levels. The needles were then removed intact. The patient experienced no sign or symptoms of intrathecal or intravascular injection. The patient experienced no paresthesia. The procedure was completed without any apparent difficulty or any complications. The patient appeared to tolerate it well. Sensory as well as motor exam was unchanged from prior to the procedure. ASSESSMENT AND PLAN: This is a 52-year-old female with cervical spondylosis, cervical degenerative disc disease, cervical facet arthropathy status post right-sided cervical radiofrequency ablation of the medial branch at C4-C7, patient will continue her current medications, patient will follow in approximately 2 weeks for reevaluation.
== END 2022-03-09 11:11 | disposition home or self-care (01) ==
LOC: SDC 08:03 → AC 08:04
PROVIDERS: Anesthesiology; PCP Family Medicine Geriatric Medicine; Referring Provider Anesthesiology Pain Medicine; Visit Provider Anesthesiology Pain Medicine
PROC: (CPT 64633; principal; 2022-03-09 09:25)
DX: M47.812 Spondylosis without myelopathy or radiculopathy, cervical region (principal); M50.30 Other cervical disc degeneration, unspecified cervical region; Z79.899 Other long term (current) drug therapy
CPT/HCPCS: 64633; 64634; 72040; 76000; 81025; J7120

== ENCOUNTER → 2022-04-20 | Outpatient (CLI) | payer OTHER, SELFPAY ==
[2022-04-20 10:32] LABS: PTHIN 28.6 pg/mL (18.4-80.1)
[2022-04-20 10:37] LABS: Vitamin B12 > 2000 pg/mL (211-911); Vitamin D,25 Hydroxy 64.6 ng/mL
[2022-04-20 11:13] LABS: Ferritin 6 ng/mL (8-252); Iron 44 ug/dL (50-170); Iron Binding Capacity,Total 466 ug/dL (250-450); PERCENT IRON SATURATION 9.4 % (15.0-55.0)
[2022-04-24 13:57] LABS: Copper, Serum or Plasma 157 ug/dL (80-158)
== END | disposition home or self-care (01) ==
PROVIDERS: PCP Family Medicine Geriatric Medicine; Visit Provider Family Medicine Geriatric Medicine
DX: R53.83 Other fatigue (principal); E55.9 Vitamin D deficiency, unspecified; E53.8 Deficiency of other specified B group vitamins; D50.9 Iron deficiency anemia, unspecified
CPT/HCPCS: 36415; 82306; 82525; 82607; 82728; 82746; 83540; 83550; 83970; 84425

== ENCOUNTER → 2022-05-12 | Outpatient (CLI) | payer OTHER, SELFPAY ==
[2022-05-12] MEDS: 0.9% NaCl Peripheral Flush Adult/Peds IV (10:04)
[2022-05-12] MEDS: 0.9% NaCl IVPB Med Flush (250 mL) 15 ML IV (10:10)
[2022-05-12 10:18] VITALS: BP 120/75; PULSE 64; RESP 14; TEMP 36.9; O2SAT 98; BMI 24.2
== END | disposition home or self-care (01) ==
LOC: MEDOUTP 09:57
PROVIDERS: PCP Family Medicine Geriatric Medicine; Referring Provider Family Medicine Geriatric Medicine; Visit Provider Family Medicine Geriatric Medicine
DX: D50.9 Iron deficiency anemia, unspecified (principal)
CPT/HCPCS: 96365; J1756; J7050; A4216

== ENCOUNTER → 2022-05-14 | Outpatient (CLI) | payer OTHER, SELFPAY ==
[2022-05-14 08:40] VITALS: BP 137/73; PULSE 65; RESP 16; TEMP 36; O2SAT 99
[2022-05-14] MEDS: 0.9% NaCl IVPB Med Flush (250 mL) 15 ML IV (08:53)
[2022-05-14] MEDS: 0.9% NaCl Peripheral Flush Adult/Peds IV (08:53)
[2022-05-14 09:36] VITALS: BP 110/75; PULSE 65
== END | disposition home or self-care (01) ==
LOC: MEDOUTP 08:25
PROVIDERS: PCP Family Medicine Geriatric Medicine; Referring Provider Family Medicine Geriatric Medicine; Visit Provider Family Medicine Geriatric Medicine
DX: D50.9 Iron deficiency anemia, unspecified (principal)
CPT/HCPCS: 96365; J1756; J7050; A4216

== ENCOUNTER → 2022-05-18 | Outpatient (CLI) | payer OTHER, SELFPAY ==
[2022-05-18 09:11] VITALS: BP 123/62; PULSE 76; TEMP 36.8; O2SAT 96
[2022-05-18] MEDS: 0.9% NaCl Peripheral Flush Adult/Peds IV (09:14)
[2022-05-18] MEDS: 0.9% NaCl IVPB Med Flush (250 mL) 15 ML IV (09:14)
[2022-05-18 10:00] VITALS: BP 125/75; PULSE 78
== END | disposition home or self-care (01) ==
LOC: MEDOUTP 08:54
PROVIDERS: PCP Family Medicine Geriatric Medicine; Referring Provider Family Medicine Geriatric Medicine; Visit Provider Family Medicine Geriatric Medicine
DX: D50.9 Iron deficiency anemia, unspecified (principal)
CPT/HCPCS: 96365; J1756; J7050; A4216

== ENCOUNTER → 2022-05-20 | Outpatient (CLI) | payer OTHER, SELFPAY ==
[2022-05-20] MEDS: 0.9% NaCl IVPB Med Flush (250 mL) 15 ML IV (14:06)
[2022-05-20] MEDS: 0.9% NaCl Peripheral Flush Adult/Peds IV (14:06)
[2022-05-20 14:15] VITALS: BP 143/65; PULSE 72; RESP 14; TEMP 36.6; O2SAT 100; BMI 24.2
[2022-05-20 14:48] VITALS: BP 122/66; PULSE 64; RESP 16; TEMP 36.6; O2SAT 99
== END | disposition home or self-care (01) ==
LOC: MEDOUTP 13:59
PROVIDERS: PCP Family Medicine Geriatric Medicine; Referring Provider Family Medicine Geriatric Medicine; Visit Provider Family Medicine Geriatric Medicine
DX: D50.9 Iron deficiency anemia, unspecified (principal)
CPT/HCPCS: 96365; J1756; J7050; A4216

== ENCOUNTER → 2022-05-22 | Outpatient (CLI) | payer OTHER, SELFPAY ==
[2022-05-22] MEDS: 0.9% NaCl IVPB Med Flush (250 mL) 15 ML IV (10:49)
[2022-05-22] MEDS: 0.9% NaCl Peripheral Flush Adult/Peds IV (10:49)
[2022-05-22 10:50] VITALS: BP 112/97; PULSE 62; RESP 16; TEMP 36.1; O2SAT 99; BMI 24.2
[2022-05-22 11:45] VITALS: BP 129/67; PULSE 56; RESP 16; TEMP 36.5; O2SAT 99
== END | disposition home or self-care (01) ==
LOC: MEDOUTP 10:27
PROVIDERS: PCP Family Medicine Geriatric Medicine; Referring Provider Family Medicine Geriatric Medicine; Visit Provider Family Medicine Geriatric Medicine
DX: D50.9 Iron deficiency anemia, unspecified (principal)
CPT/HCPCS: 96365; J1756; J7050; A4216

== ENCOUNTER → 2022-06-26 | Outpatient (CLI) | payer OTHER, SELFPAY ==
[2022-06-26 15:48] LABS: Absolute Lymphocyte Count 1.68 X10^3/uL (0.83-4.51); Absolute Neutrophil Count 4.9 X10^3/uL (2.0-7.7); Basophil# 0.02 X10^3/uL; Basophil% 0.3 % (0-1); Eosinophil# 0.17 X10^3/uL; Eosinophils% 2.3 % (0-5); Hematocrit 43.2 % (37-47); Hemoglobin 13.2 g/dL (12.0-15.0); Lymphocyte # 1.68 X10^3/ul (0.83-4.51); Lymphocyte % 22.7 % (19-41); Mean Corp Hgb Conc 30.6 g/dL (32-36); Mean Corpuscular Hgb 27.8 pg (27.0-32.0); Mean Corpuscular Volume 91.1 fL (81-99); Mean Platelet Vol. 11.4 fl (6.2-12.0); Monocyte% 8.1 % (0-10); NRBC Flagged by Analyzer 0 % (0-5); Neutrophil % 66.2 % (47-70); Platelet Count 288 K/mm3 (150-450); RBC Distribution Width CV 16.8 % (11.6-14.6); RBC Distribution Width SD 56.7 fl (35.1-43.9); Red Blood Count 4.74 M/mm3 (4.2-5.4); White Blood Count 7.4 K/mm3 (4.4-11.0)
[2022-06-26 16:31] LABS: Vitamin B12 1849 pg/mL (211-911); Vitamin D,25 Hydroxy 74.9 ng/mL
[2022-06-26 16:43] LABS: ALB/GLOB Ratio 1.1 RATIO (0.9-2.4); AST(SGOT) 17 U/L (15-37); Alanine Aminotransfer ALT/SGPT 27 U/L (13-56); Albumin, Serum 3.6 g/dL (3.2-5.0); Alkaline Phosphatase 88 U/L (45-117); Anion Gap 6 (5-15); BUN 18 mg/dL (7-18); BUN/Creat Ratio 31.7 RATIO (10-20); Calcium,Total 8.8 mg/dL (8.5-10.1); Chloride 102 mmol/L (98-107); Creatinine, Serum 0.57 mg/dL (0.55-1.02); EST Glomerular Filtration Rate 120 mL/min (>60); Est Glom Filt Rate - Afr Amer 145 mL/min (>60); Ferritin 89 ng/mL (8-252); Globulin 3.4 g/dL (2.2-4.2); Glucose 95 mg/dL (74-106); Iron 56 ug/dL (50-170); Potassium 3.9 mmol/L (3.5-5.1); Sodium Level 138 mmol/L (136-145)
[2022-06-29 08:19] LABS: PTHIN 46.1 pg/mL (18.4-80.1)
[2022-06-30 11:14] LABS: Iron Binding Capacity,Total 338 ug/dL (250-450); PERCENT IRON SATURATION 16.6 % (15.0-55.0)
[2022-07-02 04:07] LABS: Vitamin B1, Thiamine 186.7 nmol/L (66.5-200.0)
[2022-07-02 09:03] LABS: Copper, Serum or Plasma 143 ug/dL (80-158); Zinc, Plasma or Serum 74 ug/dL (44-115)
== END | disposition home or self-care (01) ==
PROVIDERS: PCP Family Medicine Geriatric Medicine
DX: E55.9 Vitamin D deficiency, unspecified (principal); D64.9 Anemia, unspecified; E53.8 Deficiency of other specified B group vitamins; K90.9 Intestinal malabsorption, unspecified; Z98.84 Bariatric surgery status
CPT/HCPCS: 36415; 80053; 82306; 82525; 82607; 82728; 82746; 83540; 83550; 83970; 84425; 84630; 85025

== ENCOUNTER → 2022-07-02 | Outpatient (CLI) | payer OTHER, SELFPAY ==
--- NOTE | 2022-07-02 08:10 | RAD_ITS ---
EXAMINATION: Air contrast UPPER GI SERIES INDICATION: Female, 52 years history of prior gastric bypass surgery. Dysphagia. FLUOROSCOPY TIME (if supplied): (0:35) minutes/seconds. 22 images were obtained. TECHNIQUE: Radiographic and fluoroscopic images of the distal esophagus, stomach, and proximal small intestine were obtained following the oral ingestion of barium. COMPARISON: None. FINDINGS: There is no evidence for organomegaly, abnormal calcifications, or abnormal bowel gas pattern. The psoas margins and flank stripes are normal. The visualized osseous structures are normal. The esophagus is unremarkable. No evidence of esophageal obstruction. No mass lesion is seen. There is no evidence of gastroesophageal reflux. The patient is status post subtotal gastrectomy. RAD/Upper GI Dual Contrast IMPRESSION: Status post subtotal gastrectomy. No evidence of gastroesophageal reflux. Electronically Signed: Khang Burrell MD at 8:58 EST ,
== END | disposition home or self-care (01) ==
LOC: RAD 07:59
PROVIDERS: PCP Family Medicine Geriatric Medicine
DX: K44.9 Diaphragmatic hernia without obstruction or gangrene (principal); R13.10 Dysphagia, unspecified; Z98.84 Bariatric surgery status
CPT/HCPCS: 74246

== ENCOUNTER → 2022-08-13 | Outpatient (CLI) | payer OTHER, SELFPAY ==
--- NOTE | 2022-08-13 07:30 | RAD_ITS ---
STUDY: X-RAY - LEFT HAND REASON FOR EXAM: Female, 52 years old. Pain in thumb. TECHNIQUE: 3 view(s) of the hand. COMPARISON: None. FINDINGS: Normal radiocarpal articulation. Normal distal radioulnar joint. Normal visualized carpal bones. 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 Normal second through fifth carpometacarpal joints. Normal metacarpi. Normal metacarpophalangeal joint of the thumb. Normal interphalangeal joint of the thumb. Normal proximal and distal phalanges of the thumb. Normal metacarpophalangeal joints of the second through fifth fingers. Normal proximal and distal interphalangeal joints of the second through fifth fingers. Normal phalanges of the second through fifth fingers. The soft tissue structures are unremarkable. RAD/Hand Min 3 Views IMPRESSION: First CMC joint arthrosis. No other abnormality. Electronically Signed: Adama Wall, at 10:28 [facility] ,
== END | disposition home or self-care (01) ==
LOC: RAD 07:27
PROVIDERS: PCP Family Medicine Geriatric Medicine; Visit Provider Family Medicine Geriatric Medicine
DX: M79.645 Pain in left finger(s) (principal)
CPT/HCPCS: 73130

== ENCOUNTER → 2022-11-05 | Outpatient (CLI) | payer OTHER, SELFPAY ==
--- NOTE | 2022-11-05 14:49 | RAD_ITS ---
STUDY: X-RAY - PELVIS AND RIGHT HIP REASON FOR EXAM: Female, 52 years old. R HIP PAIN TECHNIQUE: 3 views of the pelvis and hip. COMPARISON: None. FINDINGS: There is a non-specific bowel gas pattern. Normal visualized soft tissue structures. Normal bilateral iliac wings, sacroiliac joints and visualized sacrum. Normal bilateral superior and inferior pubic rami. Normal pubic symphysis. Normal bilateral ischial tuberosities. Normal visualized femoral head. Normal acetabulum. Normal hip joint. Age consistent degenerative changes in the left hip joint, surgical hardware in left femur free of complication. Evidence of Essure devices in the pelvis. RAD/HIP, UNI W/ Pelvis 2-3 Views IMPRESSION: Normal x-ray examination of the pelvis and hip. Electronically Signed: Nilesh Lopez MD at 15:19 EDT ,
--- NOTE | 2022-11-05 14:49 | RAD_ITS ---
STUDY: X-RAY - SACRUM/COCCYX REASON FOR EXAM: Female, 52 years old. COCCYGEAL PAIN TECHNIQUE: 3 view(s) of the sacrum and coccyx were obtained. COMPARISON: None. FINDINGS: Normal bilateral sacroiliac joints. Normal visualized sacral ala and fused sacral bodies. Normal sacrococcygeal junction with a normal angulation. Normal coccygeal segments. The presacral soft tissue structures are unremarkable. RAD/Sacrum-Coccyx min 2 Views IMPRESSION: Normal x-rays of the sacrum and coccyx. Electronically Signed: Nilesh Lopez MD at 15:19 EDT ,
== END | disposition home or self-care (01) ==
LOC: RAD 14:46
PROVIDERS: PCP Family Medicine Geriatric Medicine; Referring Provider Family Medicine Geriatric Medicine; Visit Provider Family Medicine Geriatric Medicine
DX: M25.551 Pain in right hip (principal); M53.3 Sacrococcygeal disorders, not elsewhere classified
CPT/HCPCS: 72220; 73502

== ENCOUNTER 2022-12-07 16:00 | Outpatient (RCR) | payer OTHER, SELFPAY ==
--- NOTE | 2022-11-11 08:27 | HP.PTEVAL ---
Patient's Visit Information MINDI GERBER is a 52 year old F referred to Physical Therapy by Dr. Albaro Dover MD with a diagnosis of Right Hip Pain. Date of Evaluation: 11/11/22 Physical Therapist: Teresa Calle DPT - Visit Plan Frequency: 2-3x /Week Duration: 4 Weeks Plan: Focus on posterior chain strength/stabilization. Pt is much more successful with exercise done in clinic than HEP. Done first day in clinic: Inchworms Teal, Squat with Glut Set, Hip Extn Teal Band, Bridge with SB, HS Curl with SB- Fatigues quickly. - Subjective Right Labral Repair Dr. Norris in Jun 2020 and Left Jul 2021- now she feels like she is having right hip pain again. She switches out her holidays and did not feel confident caring totes up and down the stairs- she is supposed to do a half in 18 days and is unsure if she can even walk it. She has been trying to do some strengthening (hip flexion) and walking. But she has not been running at all. She reports that her tailbone has also has been hurting. She has had x-rays which were all negative. She has not been excessively running. Pain is located in the joint- Worst: 3-4/10 Agg: carrying something, running, walking (3 miles or more). Eases: not aggravating it. Best: 0/10. It does hurt throughout the day- not always activity driven. Describes the pain as dull and achy. Pain does not radiate to the lumbar spine. Does have some quad soreness but doesn't feel that its radiating. No N/T in the toes. No loss or change in bowel or bladder. Last time she ran was about 3 weeks ago. Sleep: wakes her up at night- right buttocks hurts when she sleeps on it-pillow between knees- feels like it catches a little bit. Normal exercise routine prior to hurting she was just running, biking and rowing. No inserts in her shoes. No NSAID's. PMHx/Meds: no changes. - Objective Posture: fair throughout-she can correct with cues but does not does have slight rounded shoulder. Gait: no deviation noted. HR/TR: able without UE A. SLS: Left: 30 sec no significant sway Right: 15 sec with increased sway and mild hip drop. ROM: WFL in all planes of the lumbar and LE. Palpation: tender along glut med insertion and origin. Strength: Core: fair, Hip: flexion: 4/5, Extn: 4/5, IR/ER: 4-/5, Abd: 4-/5, Add: 4/5, Knee: Flexion: 4+/5, Extn: 5/5, Ankle: 5/5. Flex: HS: mild, Gastroc: mild - Special Tests R Hip Scour: Negative R Hip AWILDA - Intraarticular Pathology: Negative R Hip Trendelenberg - Glut Medius: Positive - Balance/Special Test Scores Lower Extremity Functional Score: 56 - Goals Goal 1:: Patient will be I with HEP and progression Goal Time Frame: 4-6 Weeks Goal 2:: Patient will SLS for 30 sec without LOB, no hip drop and no reports of instability. Goal Time Frame: 4-6 Weeks Goal 3:: Patient will maintain proper posture t/o tx session to demo increased core s/s Goal Time Frame: 4-6 Weeks Goal 4:: Patient will report 80% improvement Goal Time Frame: 4-6 Weeks - Rehabilitation Potential Physical Therapy Diagnosis: Patient presents with hypomobility- she has decreased LE and core strength/stabilization, proprioception and muscular endurance leading to instability and increased pain with ADL's and recreational activities. Rehabilitation Potential: Good - Anticipated Interventions Patient/Client Instruction: Educate patient on: Benefits of Fitness Program Therapeutic Exercise to Include: Strength training, Endurance training, Balance training, Coordination, Agility training, Body mechanics, Postural training, Flexibilty training, Gait and locomotor training, Neuromotor development, Dynamic Lumbar Stabilization, Scapular Strength/Stabilization For the Purpose of:: To improve muscle performance and motor function TENS: Yes Cryotherapy (ice pack, ice massage): Yes Thermo therapy (hot pack): Yes Ultrasound (thermal/non thermal): Yes Thank you for the opportunity to evaluate your patient. For Medicare and Medicare HMO plans, please review the plan of care and approve it. It will need to be FAXED BACK to us at [phone] for Medicare purposes. For Medicare only, by signing this I certify the plan of care. Please let me know if there are questions or concerns regarding this plan of care. Physician Signature: Date:
--- NOTE | 2023-02-08 12:38 | HP.PT.NRP ---
Patient Information Patient Information: MINDI GERBER was seen in my office for initial evaluation on 11/11/22. The following Plan of Care was established for this patient: POC Established Initial Frequency: 2-3x /Week Initial Duration: 4 Weeks Anticipated Interventions Patient/Client Instruction: Educate patient on: Benefits of Fitness Program Therapeutic Exercise to Include: Strength training, Endurance training, Balance training, Coordination, Agility training, Body mechanics, Postural training, Flexibilty training, Gait and locomotor training, Neuromotor development, Dynamic Lumbar Stabilization and Scapular Strength/Stabilization For the Purpose of:: To improve muscle performance and motor function TENS: Yes Cryotherapy (ice pack, ice massage): Yes Thermo therapy (hot pack): Yes Ultrasound (thermal/non thermal): Yes Last Seen Last Seen: This patient was last seen in our office . Pertinent comments regarding their Physical therapy will appear below: Patient to return to [facility] for further evaluation- appropriate to be d/c at this time. At this point I will be discontinuing this patient from physical therapy. I would be happy to see this patient again in the future if found appropriate by the physician. Thank you! Teresa Calle, ALET Balance/Gait/Functional tests Balance/Special Test Scores Lower Extremity Functional Score: 56
== END 2022-12-07 19:00 | disposition home or self-care (01) ==
LOC: PT 16:00
PROVIDERS: PCP Family Medicine Geriatric Medicine; Referring Provider Family Medicine Geriatric Medicine; Visit Provider Family Medicine Geriatric Medicine
DX: M25.551 Pain in right hip (principal)
CPT/HCPCS: 97110; 97162

== ENCOUNTER → 2023-01-29 | Outpatient (CLI) | payer OTHER, SELFPAY ==
--- NOTE | 2023-01-29 10:30 | RAD_ITS ---
CLINICAL HISTORY: Female, 52 years old. Chronic right hip pain. PROCEDURE: ARTHROGRAM - RIGHT HIP CONSENT: The procedure as well as the benefits and possible complications were explained to the patient. Informed consent was obtained. FLUOROSCOPY TIME (if supplied): (55 seconds) minutes/seconds. 18.46 mGy Injection Information: 10 cc of dilute MRI contrast. Number of images obtained: One TECHNIQUE: (All elements of maximal sterile barrier technique followed, including US elements as applicable) The patient was in the supine position. The overlying skin was prepped and draped in usual sterile fashion. Final contrast complication and under direct fluoroscopic guidance, a 20-gauge spinal needle was placed into the hip joint. 10 cc of dilute MRI contrast was injected for confirmation. RAD/Arthrogram Hip w/ MRI IMPRESSION: Right hip arthrogram for MRI examination. Electronically Signed: Khang Burrell MD at 10:57 EDT ,
[2023-01-29] MEDS: Lidocaine 2% (5ml sdv) 5 ML VIAL.MPF INFILT (10:32)
[2023-01-29] MEDS: Gadoterate meglumine 2.5 MMOL 10 ML, Iopamidol 5 ML, Lidocaine 1% (20 ml mdv) 5 ML, Epi... INTRAARTIC (10:33)
[2023-01-29] MEDS: Iopamidol 10 ML in Syringe 1 EACH 600 ML INTRAARTIC (11:00)
--- NOTE | 2023-01-29 12:00 | MRI_ITS ---
STUDY: MRI ARTHROGRAM OF THE RIGHT HIP REASON FOR EXAM: Female, 52 years old. Right hip pain TECHNIQUE: TECHNIQUE: Intra-articular injection of gadolinium of mixed with additional contrast material was performed by an on-site physician whose name was not provided. T1, T2, and fat suppressed images were obtained in all three orthogonal planes. COMPARISON: Right hip arthrogram dated January 29, 2023. Right hip x-ray dated November 05, 2012 FINDINGS: There is intra-articular contrast distention of the right hip articulation, secondary to the gadolinium injection, with adequate capsular distention. There is mild articular narrowing of the hip joint, with less than 50% loss of the hyaline cartilage. Normal acetabulum. Radial free edge and mild linear undersurface tearing of the superior lateral aspect of the right acetabular labrum is demonstrated resulting in a blunted appearance. Normal remaining aspects of the right acetabular labrum. Normal femoral head. Normal femoral neck and intratrochanteric region. No marrow edema or occult fractures seen. There is no evidence of avascular necrosis. Normal gluteus minimus, medius and iliopsoas tendons and distal insertions. There is no trochanteric, iliopsoas or iliopectineal bursitis. Normal superior and inferior pubic rami. Normal pubic symphysis. Normal ischial tuberosity. Normal origin of the hamstring tendons. Normal visualized iliac wing, sacroiliac joint, and sacral ala. Normal visualized soft tissue structures of the pelvis. MRI/Lower Ext/Jt Only/W Contrast IMPRESSION: 1. Radial free edge and mild linear undersurface tearing of the superior lateral aspect of the right acetabular labrum is demonstrated resulting in a blunted appearance. Normal remaining aspects of the right acetabular labrum. Electronically Signed: Byron Connor MD at 15:25 EDT Reading Location ID and State: [facility] / [place] , Service support ,
== END | disposition home or self-care (01) ==
LOC: RAD 09:59
PROVIDERS: PCP Family Medicine Geriatric Medicine; Referring Provider Family Medicine Geriatric Medicine; Visit Provider Family Medicine Geriatric Medicine
DX: M25.551 Pain in right hip (principal)
CPT/HCPCS: 27093; 73722; 77002; Q9967

== ENCOUNTER → 2023-04-26 | Outpatient (CLI) | payer OTHER, SELFPAY ==
[2023-04-26 10:57] LABS: PTHIN 55.5 pg/mL (18.4-80.1)
[2023-04-26 11:30] LABS: Vitamin B12 1638 pg/mL (211-911)
[2023-04-26 11:41] LABS: Ferritin 12 ng/mL (8-252); Iron 86 ug/dL (50-170); Iron Binding Capacity,Total 365 ug/dL (250-450); PERCENT IRON SATURATION 23.6 % (15.0-55.0); Thyroid Stim Hormone (TSH) 1.26 uIU/mL (0.358-3.74)
[2023-05-04 19:07] LABS: Copper, Serum or Plasma 173 ug/dL (80-158); Vitamin B1, Thiamine 141.6 nmol/L (66.5-200.0)
== END | disposition home or self-care (01) ==
LOC: LAB 10:12
PROVIDERS: PCP Family Medicine Geriatric Medicine; Referring Provider Family Medicine Geriatric Medicine; Visit Provider Family Medicine Geriatric Medicine
DX: R53.83 Other fatigue (principal)
CPT/HCPCS: 36415; 82306; 82525; 82607; 82728; 82746; 83540; 83550; 83970; 84425; 84443

== ENCOUNTER 2023-06-14 05:57 | Day surgery (SDC) | payer OTHER, SELFPAY ==
[2023-06-14] VITALS (7 sets, daily range): BP systolic 108–123; BP diastolic 70–83; PULSE 67–96; RESP 16; TEMP 36.6–36.8; O2SAT 95–97; BMI 26.4
[2023-06-14] MEDS: Lactated Ringers 1,000 ML 15 ML IV (06:20)
[2023-06-14 06:27] LABS: Internal QC Validated? YES +Cl - CLEAR BKGD; Pregnancy, Urine Negative Negative
--- NOTE | 2023-06-14 07:24 | RAD_ITS ---
EXAM: XR Spine Cervical 4 or 5 Views HISTORY: RADIO FREQ ABLATION C4-C7. Images for documentation only COMPARISON: None Technique: 10 intraoperative C-arm films obtained as the patient has undergone left-sided C4-C7 radiofrequency ablation. FINDINGS: No plain film evidence of intraoperative complications during placement of needles into the left C4-C7 neural foramen. RAD/Cerv Spine 4 or 5 Views IMPRESSION: No intraoperative complications during C4-C7 radiofrequency ablation Electronically Signed: Nilesh Lopez MD at 10:10 EST ,
[2023-06-14] MEDS: MethylPREDNISolone Acetate 40 MG/ML Vial (07:45)
[2023-06-14] MEDS: Lidocaine 1% (20 ml mdv) 20 ML Vial (07:45)
--- NOTE | 2023-06-14 07:56 | PCM.OPRPT ---
Report of Operation Date of Procedure: 06/14/23 Description of Surgical Findings:: PREOPERATIVE DIAGNOSIS: Cervical spondylosis, cervical degenerative disc disease, cervical facet arthropathy POSTOPERATIVE DIAGNOSIS: Cervical spondylosis, cervical degenerative disc disease, cervical facet arthropathy PROCEDURE PERFORMED: Right-sided cervical radiofrequency ablation of the medial branch at C4, C5, C6, and C7. ANESTHESIA: MAC. BLOOD LOSS: Minimal. COMPLICATIONS: None. DESCRIPTION OF PROCEDURE: History and physical of today was reviewed. Risks and benefits of the procedure were explained. The patient understood and agreed to proceed. Informed consent was obtained. IV inserted per routine protocol. The patient was taken to the operating room and placed in the prone position with a pillow positioned underneath the chest. The neck area was prepped and draped in a sterile fashion using iodine x3. Under fluoroscopy guidance on an AP view, the C4 through C7 vertebral bodies were visualized. The skin and subcutaneous tissue was anesthetized with approximately 10 mL of 1% lidocaine using a 25-gauge regular needle. Under direct visualization on fluoroscopy on a lateral view, using a 21-gauge 10-cm with a 10-mm curved active-tip radiofrequency ablation needle, the needle was passed through the skin. The tip of the needle was maneuvered and directed towards the epiphyseal junction of each corresponding vertebra, starting on the right C4, ending on the right C7, passing through the C5 and C6. Once the tip of the needle was at the vicinity of the medial branch and at the middle of the trapezoid on the lateral view, the stylette of each needle was then removed. After negative aspiration of blood or CSF and confirmation on AP, oblique as well as lateral view, radiofrequency ablation probe was then inserted at each level. Impedance was then recorded at C4 to be 299 ohm, at C5 to be 320 ohm, at C6 to be 293 ohm, and at C7 to be 271 ohm. Motor-evoked potential was then initiated to 2 HZ and 1.5 volt without any motor response to each corresponding level or the right arm. The probe was then removed intact and a total of 4 mL of preservative-free 1% lidocaine was injected in divided doses between those four levels after negative aspiration of blood or CSF. After repeated confirmation, the radiofrequency ablation probe was then inserted and after repeated confirmation on AP, oblique as well as lateral view, radiofrequency ablation was then initiated to approximately 80 degree Celsius for 60 second at each level. Once concluded, the probe was then removed intact. A total of 4 mL of preservative-free 0.25% Marcaine with 40 mg of Depo-Medrol was injected in divided doses between those four levels. The needles were then removed intact. The patient experienced no sign or symptoms of intrathecal or intravascular injection. The patient experienced no paresthesia. The procedure was completed without any apparent difficulty or any complications. The patient appeared to tolerate it well. Sensory as well as motor exam was unchanged from prior to the procedure. ASSESSMENT AND PLAN: This is a 53-year-old female with cervical spondylosis, cervical degenerative disc disease, cervical facet arthropathy status post right-sided cervical radiofrequency ablation of the medial branch at C4-C7, patient will continue her current medications, patient will follow up in approximately 2 weeks for reevaluation.
== END 2023-06-14 08:38 | disposition home or self-care (01) ==
LOC: SDC 05:57 → AC 05:58
PROVIDERS: Anesthesiology; PCP Family Medicine Geriatric Medicine; Referring Provider Anesthesiology Pain Medicine; Visit Provider Anesthesiology Pain Medicine
PROC: (CPT 64633; principal; 2023-06-14 07:25)
DX: M50.30 Other cervical disc degeneration, unspecified cervical region (principal); M47.812 Spondylosis without myelopathy or radiculopathy, cervical region; G47.33 Obstructive sleep apnea (adult) (pediatric); K21.9 Gastro-esophageal reflux disease without esophagitis; M19.90 Unspecified osteoarthritis, unspecified site
CPT/HCPCS: 64633; 64634; 00600; 72050; 76000; 81025; J7120

== ENCOUNTER 2024-04-12 17:00 | Outpatient (RCR) | payer OTHER, SELFPAY ==
--- NOTE | 2024-02-11 12:09 | HP.PTEVAL_ITS ---
Patient's Visit Information Visit Information Visit Information: MINDI GERBER is a 53 year old F referred to Physical Therapy by Dr. Mike Norris MD with a diagnosis of R scope labral repair with chondroplasty, synovectomy 01/20/24. Date of Evaluation: 02/11/24 Physical Therapist: BREA Morales Visit Plan Frequency: 2x /Week Duration: 2 Months Plan: NO SLR, Pt started WBAT on 02/09, wants ROM before strength, wants no flare ups and if pain occurs have to back down, no aggressive stretching, no joint mobs till 10 weeks 2X/ week for 8 weeks to follow thorough protocol (in folder) for ROM, progressive WB, core strength, and progress to strengthening per protocol (when ROM is reached). HEP: QS, SKC, Pelvic Tilts Subjective Subjective: Surgery on R hip was 01/19 and it was a revision. She was 2 crutches last Wednesday and was able to get rid of the crutches yesterday. She has basement stairs at home but she has a ranch. She is in no pain right now. She had CPM until last Wednesday when she saw the . Her scars feel good. She is off until 01-21. She is not sleeping ok but not related to the hip pain. Pain R hip pain: Pain Intensity (Out of 10): 0 Objective Objective: Gait: walks with decrease stance time on the R LE with slightly shortened gait pattern. She has been FWB since yesterday R hip flexion 110 degrees Pt is able to stand heel and toe raise Pt able to do QS and tolerated PROM flexion Balance/Special Test Scores Lower Extremity Functional Score: 44 Goals Goal 1:: I HEP Goal Time Frame: 8-12 Weeks Goal 2:: Increase R hip AROM to 125 degrees hip flexion Goal Time Frame: 8-12 Weeks Goal 3:: Be able to walk with a normal gait pattern without antalgic gait Goal Time Frame: 8-12 Weeks Goal 4:: Decrease Hip pain to 0/10 with return to full ADLs/hobbies Goal Time Frame: 8-12 Weeks Rehabilitation Potential Rehabilitation Potential: Excellent Anticipated Interventions Patient/Client Instruction: Educate patient on: Condition and Plan of Care For the Purpose of:: To decrease pain, To increase ROM, To improve nutrient delivery to tissue, To improve muscle performance and motor function, To improve ability to perform ADL's, To increase tolerance to activity/condition/position, To improve performance and independence with ADL's, To decrease level of supervision to perform tasks, To improve ability of physical actions for home/community/work/leisure, To improve gait and locomotor functions, To improve health of tissue, To decrease soft tissue restriction, To increase flexibility/ROM, To improve endurance, To improve balance and To improve safety with gait Therapeutic Exercise to Include: Strength training, Balance training, Body mechanics, Postural training, Flexibilty training, Gait and locomotor training, Neuromotor development, Passive ROM, Active ROM and Dynamic Lumbar Stabilization For the Purpose of:: To decrease pain, To increase ROM, To improve nutrient delivery to tissue, To increase oxygenation perfusion, To improve muscle performance and motor function, To improve ability to perform ADL's, To increase tolerance to activity/condition/position, To improve performance and independence with ADL's, To decrease level of supervision to perform tasks, To improve ability of physical actions for home/community/work/leisure, To improve gait and locomotor functions, To improve health of tissue, To decrease soft tissue restriction, To increase flexibility/ROM, To improve endurance, To improve balance and To improve safety with gait Functional Training to Include: Gait training For the Purpose of:: To improve gait and locomotor functions and To improve safety with gait Manual Therapy Techniques to Include: Passive ROM For the Purpose of:: To decrease pain, To increase ROM and To improve nutrient delivery to tissue Text: Thank you for the opportunity to evaluate your patient. For Medicare and Medicare HMO plans, please review the plan of care and approve it. It will need to be FAXED BACK to us at [phone] for Medicare purposes. For Medicare only, by signing this I certify the plan of care. Please let me know if there are questions or concerns regarding this plan of care. Physician Signature: Date:
--- NOTE | 2024-04-12 17:31 | HP.PTDCSUM ---
Discharge Summary D/C summary: It has been my pleasure to treat MINDI GERBER referred by Dr. Mike Norris MD, with the diagnosis of R scope labral repair with chondroplasty, synovectomy 01/20/24 for a total of 13 visit(s). Discharge Date: 04/12/24 Please see the following information for a summary of their discharge status. Subjective Subjective: Pt reports that stiffness is an issue still and laying on her R side. She sees the surgeon next week and will bring that up to him Pain R hip pain: Pain Intensity (Out of 10): 0 Overall Improvement % Improvement: 75 Objective Objective/Function: 0-131 R hip flexion Gait: walks with a normal gait pattern. Able to walk on heels and toes without an issue Squat to chair: even and without pain Goals Goal 1:: I HEP Goal Progress: Goal Met Goal 2:: Increase R hip AROM to 125 degrees hip flexion Goal Progress: Goal Met Goal 3:: Be able to walk with a normal gait pattern without antalgic gait Goal Progress: Goal Met Goal 4:: Decrease Hip pain to 0/10 with return to full ADLs/hobbies Goal Progress: Goal Met Plan Plan: NO SLR, Pt started WBAT on 02/09, wants ROM before strength, wants no flare ups and if pain occurs have to back down, no aggressive stretching, no joint mobs till 10 weeks 2X/ week for 8 weeks to follow thorough protocol (in folder) for ROM, progressive WB, core strength, and progress to strengthening per protocol (when ROM is reached). D/C Information Discharge Comments: DC PT to [facility] d/c sentence: If there are questions or concerns regarding this patient's physical therapy, please feel free to call me at [phone]. Thank you for the referral of this patient. Sincerely, Mandy Fonseca, MPT Balance/Gait/Functional tests Balance/Special Test Scores Lower Extremity Functional Score: 62 Improvement % Improvement: 75
== END 2024-04-12 19:00 | disposition home or self-care (01) ==
LOC: PT 17:00
PROVIDERS: PCP Family Medicine Geriatric Medicine; Referring Provider Orthopaedic Surgery Sports Medicine; Visit Provider Orthopaedic Surgery Sports Medicine
DX: M24.151 Other articular cartilage disorders, right hip (principal); M25.851 Other specified joint disorders, right hip
CPT/HCPCS: 97110; 97161; 97530

== ENCOUNTER → 2024-04-12 | Outpatient (CLI) | payer OTHER, SELFPAY ==
--- NOTE | 2024-04-12 07:24 | BI_ITS ---
MAMMOGRAPHY - BILATERAL SCREENING REASON FOR EXAM: Female, 54 years old. Routine annual screening examination. PERTINENT HISTORY: Non-contributory. History of prior bilateral breast reduction surgery. TECHNIQUE: Digital bilateral breast jonna (3D mammographic acquisition) in the CC and MLO projections. 2-D mediolateral oblique (MLO) and craniocaudad (CC) views of both breasts were obtained. CAD: Full Field Digital Mammography with Computer Added Detection was performed. COMPARISON: Comparison is made with prior study January 29, 2021 and March 26, 2016. FINDINGS: Breast Composition: The breasts are heterogeneously dense, which may obscure small masses. There are no dominant masses or suspicious calcifications. Stable asymmetrical breast tissue in the right axillary region. No other significant abnormalities are identified. There has been no significant change since the prior study. BI/SCRN MAMM (CAD)W/JONNA BILAT IMPRESSION: Stable bilateral screening mammogram. Yearly follow-up mammogram recommended. (A) ASSESSMENT CATEGORY: BIRADS Category 2: Benign. A letter regarding these results will be sent to the patient by the facility within 30 days. Approximately 10% of breast cancers are not detected by mammography. A normal mammogram should not delay biopsy of a clinically suspicious abnormality. [id number] Electronically Signed: Khang Burrell MD at 8:47 EDT ,
== END | disposition home or self-care (01) ==
LOC: OPBI 07:24
PROVIDERS: PCP Family Medicine Geriatric Medicine; Referring Provider Obstetrics & Gynecology; Visit Provider Obstetrics & Gynecology
DX: Z12.31 Encounter for screening mammogram for malignant neoplasm of breast (principal)
CPT/HCPCS: 77063; 77067

== ENCOUNTER → 2024-04-25 | Outpatient (CLI) | payer OTHER, SELFPAY ==
[2024-04-25 08:46] LABS: PTHIN 18.8 pg/mL (18.4-80.1)
[2024-04-25 08:50] LABS: Vitamin B12 > 2000 pg/mL (211-911); Vitamin D,25 Hydroxy 82.4 ng/mL
[2024-04-25 09:22] LABS: ALB/GLOB Ratio 1.1 RATIO (0.9-2.4); AST(SGOT) 21 U/L (15-37); Alanine Aminotransfer ALT/SGPT 22 U/L (13-56); Albumin, Serum 3.6 g/dL (3.2-5.0); Alkaline Phosphatase 126 U/L (45-117); Anion Gap 5 (5-15); BUN 14 mg/dL (7-18); BUN/Creat Ratio 26.4 RATIO (10-20); Calcium,Total 9.3 mg/dL (8.5-10.1); Chloride 106 mmol/L (98-107); Creatinine, Serum 0.53 mg/dL (0.55-1.02); EST Glomerular Filtration Rate 128 mL/min (>60); Est Glom Filt Rate - Afr Amer 155 mL/min (>60); Ferritin 6 ng/mL (8-252); Globulin 3.3 g/dL (2.2-4.2); Glucose 92 mg/dL (74-106); Iron 31 ug/dL (50-170); Iron Binding Capacity,Total 428 ug/dL (250-450); PERCENT IRON SATURATION 7.2 % (15.0-55.0); Protein, Total 6.9 g/dL (6.4-8.2); Sodium Level 138 mmol/L (136-145)
[2024-04-28 17:07] LABS: Copper, Serum or Plasma 126 ug/dL (80-158); Vitamin B1, Thiamine 129.3 nmol/L (66.5-200.0)
== END | disposition home or self-care (01) ==
LOC: LAB 06:57
PROVIDERS: PCP Family Medicine Geriatric Medicine; Referring Provider Family Medicine Geriatric Medicine; Visit Provider Family Medicine Geriatric Medicine
DX: R53.83 Other fatigue (principal)
CPT/HCPCS: 36415; 80053; 82306; 82525; 82607; 82728; 82746; 83540; 83550; 83970; 84425

== ENCOUNTER 2024-04-28 08:14 | Outpatient (CLI) | payer OTHER, SELFPAY ==
[2024-04-28 08:22] VITALS: BP 145/79; PULSE 85; RESP 14; TEMP 36.6; O2SAT 97; BMI 26.4
[2024-04-28] MEDS: Iron Sucrose Complex 200 MG in 0.9% Normal Saline (100mL Bag) 100 ML 220 MG IV (08:33)
[2024-04-28] MEDS: 0.9% NaCl Peripheral Flush Adult/Peds IV (08:39)
[2024-04-28 09:33] VITALS: BP 139/70; PULSE 80
== END 2024-04-28 23:59 | disposition home or self-care (01) ==
LOC: MEDOUTP 08:14
PROVIDERS: PCP Family Medicine Geriatric Medicine; Referring Provider Family Medicine Geriatric Medicine; Visit Provider Family Medicine Geriatric Medicine
DX: D50.9 Iron deficiency anemia, unspecified (principal)
CPT/HCPCS: 96365; J1756; J7050; A4216

== ENCOUNTER 2024-05-01 07:18 | Outpatient (CLI) | payer OTHER, SELFPAY ==
[2024-05-01 07:37] VITALS: BP 127/66; PULSE 73; RESP 16; TEMP 36.4; O2SAT 98; BMI 26.4
[2024-05-01] MEDS: 0.9% NaCl Peripheral Flush Adult/Peds IV (07:42)
[2024-05-01] MEDS: 0.9% Normal Saline (100mL Bag) 100 ML 15 ML IV (07:55)
[2024-05-01] MEDS: Iron Sucrose Complex 200 MG in 0.9% Normal Saline (100mL Bag) 100 ML 220 MG IV (08:05)
[2024-05-01 08:52] VITALS: BP 123/72; PULSE 73; RESP 14; TEMP 36.2; O2SAT 99
== END 2024-05-01 23:59 | disposition home or self-care (01) ==
LOC: MEDOUTP 07:19
PROVIDERS: PCP Family Medicine Geriatric Medicine; Referring Provider Family Medicine Geriatric Medicine; Visit Provider Family Medicine Geriatric Medicine
DX: D50.9 Iron deficiency anemia, unspecified (principal)
CPT/HCPCS: 96365; J1756; A4216

== ENCOUNTER 2024-05-03 13:49 | Outpatient (CLI) | payer OTHER, SELFPAY ==
[2024-05-03] MEDS: Iron Sucrose Complex 200 MG in Syringe 1 EACH 120 MG IV (14:06)
[2024-05-03] MEDS: 0.9% NaCl Peripheral Flush Adult/Peds IV ×2 (14:06→14:19)
[2024-05-03 14:14] VITALS: BP 138/80; PULSE 65; RESP 16; TEMP 36.1; O2SAT 97
[2024-05-03 14:16] VITALS: BP 127/80; PULSE 67; RESP 16; TEMP 36.1; O2SAT 95
== END 2024-05-03 23:59 | disposition home or self-care (01) ==
LOC: MEDOUTP 13:49
PROVIDERS: PCP Family Medicine Geriatric Medicine; Referring Provider Family Medicine Geriatric Medicine; Visit Provider Family Medicine Geriatric Medicine
DX: D50.9 Iron deficiency anemia, unspecified (principal)
CPT/HCPCS: 96374; J1756; A4216

== ENCOUNTER 2024-05-05 07:59 | Outpatient (CLI) | payer OTHER, SELFPAY ==
[2024-05-05 08:15] VITALS: BP 119/66; PULSE 87; RESP 14; TEMP 35.9; O2SAT 100
[2024-05-05] MEDS: Iron Sucrose Complex 200 MG in Syringe 1 EACH 120 MG IV (08:17)
[2024-05-05] MEDS: 0.9% NaCl Peripheral Flush Adult/Peds IV ×2 (08:17→08:25)
[2024-05-05 08:45] VITALS: BP 127/65; PULSE 68; RESP 14; TEMP 36; O2SAT 100
== END 2024-05-05 23:59 | disposition home or self-care (01) ==
LOC: MEDOUTP 07:59
PROVIDERS: PCP Family Medicine Geriatric Medicine; Referring Provider Family Medicine Geriatric Medicine; Visit Provider Family Medicine Geriatric Medicine
DX: D50.9 Iron deficiency anemia, unspecified (principal)
CPT/HCPCS: 96374; J1756; A4216

== ENCOUNTER 2024-05-08 07:42 | Outpatient (CLI) | payer OTHER, SELFPAY ==
[2024-05-08 07:49] VITALS: BP 112/93; PULSE 79; RESP 16; TEMP 36.4; O2SAT 98
[2024-05-08] MEDS: Iron Sucrose Complex 200 MG in Syringe 1 EACH 120 MG IV (07:57)
[2024-05-08] MEDS: 0.9% NaCl Peripheral Flush Adult/Peds IV ×2 (07:57→08:05)
[2024-05-08 08:13] VITALS: BP 124/82; PULSE 84; RESP 14; TEMP 35.8; O2SAT 96
== END 2024-05-08 23:59 | disposition home or self-care (01) ==
LOC: MEDOUTP 07:42
PROVIDERS: PCP Family Medicine Geriatric Medicine; Referring Provider Family Medicine Geriatric Medicine; Visit Provider Family Medicine Geriatric Medicine
DX: D50.9 Iron deficiency anemia, unspecified (principal)
CPT/HCPCS: 96374; J1756; A4216

== ENCOUNTER → 2024-05-09 | Outpatient (CLI) | payer OTHER, SELFPAY ==
[2024-05-09 09:03] LABS: Erythrocyte Sedimentation Rate 16 mm/hr (0-30)
[2024-05-09 10:15] LABS: CRP 4.14 mg/L (0.0-3.0); Rheumatoid Factor < 10.0 IU/mL (<15)
[2024-05-10 14:54] LABS: CCP IgG Antibodies 7 units (0-19)
== END | disposition home or self-care (01) ==
LOC: LAB 07:24
PROVIDERS: PCP Family Medicine Geriatric Medicine; Referring Provider Family Medicine Geriatric Medicine; Visit Provider Family Medicine Geriatric Medicine
DX: M25.50 Pain in unspecified joint (principal)
CPT/HCPCS: 36415; 85652; 86140; 86200; 86431

== ENCOUNTER 2024-05-10 07:40 | Outpatient (CLI) | payer OTHER, SELFPAY ==
[2024-05-10 07:58] VITALS: BP 118/75; PULSE 90; RESP 14; TEMP 35.8; O2SAT 98
[2024-05-10] MEDS: 0.9% NaCl Peripheral Flush Adult/Peds IV ×2 (08:00→08:06)
[2024-05-10] MEDS: Iron Sucrose Complex 200 MG in Syringe 1 EACH 120 MG IV (08:00)
[2024-05-10 08:15] VITALS: BP 128/71; PULSE 80; RESP 14; TEMP 35.9; O2SAT 96
== END 2024-05-10 23:59 | disposition home or self-care (01) ==
LOC: MEDOUTP 07:40
PROVIDERS: PCP Family Medicine Geriatric Medicine; Referring Provider Family Medicine Geriatric Medicine; Visit Provider Family Medicine Geriatric Medicine
DX: D50.9 Iron deficiency anemia, unspecified (principal)
CPT/HCPCS: 96374; J1756; A4216